=== PATIENT | male | born 2005 | race Caucasian/White ===

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

== ENCOUNTER → 2023-04-19 | Outpatient (CLI) | payer OTHER, SELFPAY ==
--- NOTE | 2023-04-19 | MRI_ITS ---
INDICATION: SYRINX EXAMINATION: MRI - MR Spine Cervical WO/W Contrast TECHNIQUE: Multiplanar and multisequence MR images of the cervical spine were performed before and after IV contrast administration IV Contrast Dosage and Agent: IV CLARISCAN 19 CC COMPARISON: CT Cervical Spine Feb 02 2022, MR BrainMar 2022.CT Cervical Spine Feb 02 2022, MR Brain Aug 16 2022 FINDINGS: VERTEBRAE: Normal vertebral bodies and posterior elements. VERTEBRAL ALIGNMENT: Normal, including the craniocervical junction and cervicothoracic junction. No spondylolisthesis. There is preservation of the normal cervical lordosis. CERVICAL SPINAL CORD: Unremarkable in signal and morphology. C2/C3: Normal disc height and morphology. Normal spinal canal and neuroforamina. C3/C4: Normal disc height and morphology. Normal spinal canal and neuroforamina. C4/C5: Normal disc height and morphology. Normal spinal canal and neuroforamina. C5/C6: Normal disc height and morphology. Normal spinal canal and neuroforamina. C6/C7: Normal disc height and morphology. Normal spinal canal and neuroforamina. C7/T1: Normal disc height and morphology. Normal spinal canal and neuroforamina. NECK SOFT TISSUES: No prevertebral soft tissue swelling. There is no cervical adenopathy. MRI/Spine Cervical W/WO Contrast IMPRESSION: Unremarkable MRI of the cervical spine. Electronically Signed: Da Liao MD at 7:10 [facility] ,
--- NOTE | 2023-04-19 15:55 | MRI_ITS ---
STUDY: MRI THORACIC SPINE WITH AND WITHOUT CONTRAST REASON FOR EXAM: Male, 17 years old. GASTROPARESIS, R/0 SYRINX, IMPINGEMENT TECHNIQUE: T1 and T2-weighted images were performed in various projections through the thoracic spine. IV 19 cc CLARISCAN was administered for the contrast portion of the examination. COMPARISON: None. FINDINGS: Normal kyphosis of the thoracic spine. There is no substantial scoliosis. T1-2, T2-3, T3-4, T4-5, T5-6, T6-7, T10-11, T11-12 : Normal endplates. Normal disc hydration, heights and morphology of the corresponding intervertebral discs. Normal central canal and intervertebral neural foramina at the corresponding levels. T7-8: Disc bulge and spurring. No canal stenosis. Neural foramina are patent, T8-9: Disc bulging and spurring to the left. No canal stenosis. Neural foramina are patent, T9-10: Spurring to the right narrowing the right lateral recess. Neural foramina are patent. Normal visualized thoracic cord. Normal conus medullaris that terminates at the L1 level.. The soft tissue structures are unremarkable. There is no enhancing abnormality. MRI/Spine Thoracic W/WO Contrast IMPRESSION: Scoliosis with degenerative change. No canal stenosis or foraminal narrowing. No syrinx of the thoracic cord. Electronically Signed: Mart Jose MD at 10:00 EST ,
== END | disposition home or self-care (01) ==
PROVIDERS: PCP Family Medicine; Referring Provider Family Medicine; Visit Provider Family Medicine
DX: M54.2 Cervicalgia (principal); G95.0 Syringomyelia and syringobulbia; K31.84 Gastroparesis; R10.9 Unspecified abdominal pain; G89.29 Other chronic pain
CPT/HCPCS: 72156; 72157; A9575

== ENCOUNTER → 2023-04-24 | Outpatient (CLI) | payer OTHER, SELFPAY ==
--- NOTE | 2023-04-24 14:55 | RAD_ITS ---
STUDY: X-RAY - CERVICAL SPINE REASON FOR EXAM: Male, 17 years old. CERVICALGIA TECHNIQUE: 7 view(s) of the cervical spine were obtained. COMPARISON: None FINDINGS: Normal anterior atlantoaxial articulation. Normal odontoid process. Normal cervical lordosis. No subluxation on flexion or extension views. Normal vertebral bodies and endplates. Mild disc space narrowing at C5/C6. Normal visualized intervertebral neuroforamina. The soft tissue structures are unremarkable. RAD/Cerv Spine Obl/Flex/Ext Comp IMPRESSION: Mild focal degenerative disc disease at C5/C6. MRI may be useful. No instability. Electronically Signed: Johny Magallon MD at 22:41 EST ,
== END | disposition home or self-care (01) ==
PROVIDERS: PCP Family Medicine
DX: M54.2 Cervicalgia (principal)
CPT/HCPCS: 72052

== ENCOUNTER 2023-06-28 14:05 | Emergency (ER) | payer OTHER, SELFPAY ==
[2023-06-28 14:06] VITALS: BP 137/68; PULSE 89; RESP 16; TEMP 36.8; O2SAT 98; BMI 30.4
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
--- NOTE | 2023-06-28 14:27 | RAD_ITS ---
STUDY: X-RAY - RIGHT SHOULDER REASON FOR EXAM: Male, 17 years old. Injury/pain. TECHNIQUE: 4 views of the right shoulder. COMPARISON: Right shoulder radiographs dated 04/20/2022. FINDINGS: Intact glenohumeral articulation. There are chronic cystic changes in the glenoid. Normal acromioclavicular joint. Normal acromion. Normal humeral head and visualized proximal humerus. The soft tissue structures are unremarkable. There is no demonstrated fracture. Normal visualized pulmonary apex. RAD/Shoulder min 2 Views IMPRESSION: Unchanged and unremarkable right shoulder. Electronically Signed: Saúl Howell MD at 14:44 EST ,
--- OUTSIDE RECORDS SUMMARY | 2023-06-28 14:59 | XMS RPT_ITS | CCD ---
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 perspective, he relates he had not had recurrent syncope since his initial injection of occipital neuralgia, he did have another injection this year but had not had recurrent syncope. We dicussed the syncope was likely vasovagal associated with the pain from the neuralgia. As he has not had recurrence in the past couple years no additional testing or treatment is indicated. I discussed vasovagal syncope with him and his mom, explained what this means and also we dicussed this reflex would be something he was born with and will have his whole life. We discussed he may never have another episode or could recur even many years from now. I cautioned that triggers can change and even though in the past it was linked with his neck pain he may have an episode from a different trigger and I discussed some examples. Recommendations for Syncope We discussed syncope and the more common potential causes. We discussed workup and management options. -When possible to identify triggers and avoid them, though this is not always possible. -Be self aware , meaning pay attention to the warning signs that you recognize from similar episodes in the past (things like feel lightheaded or dizzy, feeling like you're going to pass out, warm sensation, nausea, sweaty or cold and clammy, ringing in the ears or feeling like your underwater, blurred vision, tunnel vision or a blackening or curtain coming across you vision). -take immediate action, don't try to go somewhere better, warning symptoms may only occur a second or two before. Important to avoid injury. Use postural response (lie down, sit down, lean over a counter or table, hold on to the wall or doorframe anything you can do to lower your risk an limit or avoid a fall) Use physical counter maneuvers (cross your legs or pull your hands apart and squeeze your muscles as we discussed or clench your hands rhythmically and tightly) -Stay well hydrated, if appropriate incorporate a salt rich snack on days your symptomatic (avoid if hypertension or heart failure) -The recovery phase: stay lying down until your recovered, if anyone is with you have them get a glass/bottle of water for you and drink it rapidly. Dont be too quick to stand or resume activities. Go rest for awhile until fully recovered -Never drive, operate machinery or work from heights if symptoms are present. This places you and other at risk for harm or injury. -If you have vasovagal syncope, yoga may be helpful in reducing recurrences but avoid Hot Yoga and may need to avoid certain positions that require abrupt postural change. They had a few questions about seeing a chiropractor, managing neck discomfort with a history of bulging disc, his gastroparesis. I discussed that I am not an expert in these areas and would defer to their other providers, but I did my best to address their questions with my thoughts and understanding in a level consistent with the fundamental medical knowledge of a competent doctor and being very careful to ensure they knew this was not expert opinion or my area of specialty. As he has been stable from a syncope perspective, I will not make a planned follow up but also discussed that if he has recurrent syncope or symptoms of an arrhythmia to not hesitate to message me and I will set up follow up. I personally interviewed, confirmed and edited the above information as obtained by others. CONTACT INFORMATION: Zeny Enriquez DO As a national referral center for Syncope and related conditions, seeing patients from across the country, we cannot provide work, FMLA, disability or other forms, or cardiac clearance. Please contact the patient's primary care physician or clinical electronic page makeup system operator for the documentation requested. We will provide the office notes from the patient's most recent visit if they have not already been received, and other tests or evaluations performed here can be made available upon request. documented in this encounter [facility] 05-09-2023 Miscellaneous Notes Patient asking if he needs to see cardiology that is scheduled on 05/17. Will have xrays sent to our office. Saw eye doctor and nothing was found. States he has not had any more passing out episodes but vomits every day so only eats once a day. Does not take medication and is dealing with pain. Asking advice. Hannah Fu RN, BSN documented in this encounter [facility] 02-13-2023 Miscellaneous Notes Pt's mother to try to schedule opthalmology appointment locally Time Frame: as soon as can be scheduled Orders: consult to ophthalmology (Neuro opthalmology) order is in [facility] Provider: Roberto See Referring: Janet Diagnosis: Arachnoid cyst R/O Papilledema documented in this encounter [facility] 02-07-2023 Miscellaneous Notes Someone on behalf of patient giving update that cartographic technician appointment is not available until next year. Will call locally to try to get patient in sooner. Asked them to sign name on message if not patient so we know who we are messaging. Hannah Fu RN, BSN documented in this encounter [facility] 02-06-2023 Note HNO ID: [id number] Author: Tomasz Hoffmann APRN.WELDING MACHINE OPERATOR HELPER [employer] Service: ? Author Type: Nurse Practitioner Type: Progress Notes Filed: 02/06/2023 4:59 PM Note Text: [facility] Established Patient Virtual Visit Chief Complaint/Issues: Tru Best is a 17 year old handed right-handed male seen via virtual visit for: Follow up Gastroparesis This is a virtual visit using [employer] video visit. It required patient-provider interaction for the medical decision making as documented below. I have communicated my name and active licensure. The patient's identity and physical location were verified at the time of this visit. Either the patient or their legal outside dealer sales representative has been informed of the risks and benefits of -- and alternatives to -- treatment through a remote evaluation and consents to proceed with the evaluation remotely. Brief HPI /Most Recent Department Assessment and Plan Seen 12/18/2022 for initial evaluation: He reports around age 14, he developed issues with bilateral occipital pain. He started having frequent syncopal episodes, estimates about 20 total. Events would often occur without warning, followed by brief LOC lasting only seconds. No seizure signs or post-ictal state. He reports he was eventually diagnosed with occipital neuralgia and received a block, as well as DHE infusions for headaches. After the headaches improved, he no longer had syncopal episodes. He had cardiac monitoring and echo completed and WNL. Events are most likely consistent with vasovagal response 2/2 chronic pain. He is scheduled to see cardiology here at [facility]. After the syncopal episodes he did have an MRI brain showing large L frontal arachnoid cyst, with minor mass effect, for which he follows with [facility] neurology. He had COVID twice in 2021. In July of 2022, he developed new onset GI symptoms (nausea, frequent vomiting, diarrhea). He was unable to keep food down. He developed severe abdominal pain that can radiate to the back. He was eventually diagnosed with gastroparesis and transitioned care to Dr. Wallis. He does have about 20 mmHg decrease in SBP on standaing, which may be secondary to amitriptyline. Will obtain autonomic tilt off medication to evaluate for medication effect. He does not have neuropathy on exam, but given gut dysfunction will obtain QSART. 1) Labs - WNL 2) Send me MRI report and disc 3) QSART - WNL 4) Autonomic reflex with tilt - WNL Today: Accompanied by momAna. We discuss the testing today, during tilt he felt fine the entire time. Mom reports he has been off all of his medications since stopping for the testing. He reports he is actually puking somewhat less and actually has less pain. He is still vomiting daily, especially in the morning. He has not touched base with Dr. Wallis yet. Mom feels concerned about cervical spine impingement. They feel worried about symptoms starting after surgery. Mom reports he sometimes gets neck pain when he extends the neck backwards. PMH PAST MEDICAL HISTORY Diagnosis Date Arachnoid cyst L frontal lobe Gastroparesis Migraines Occipital neuralgia No past surgical history on file. ALLERGIES No Known Allergies Social History Tobacco Use Smoking status: Never Smokeless tobacco: Never Substance Use Topics Alcohol use: Never Drug use: Never No family history on file. Medications Current Outpatient Medications on File Prior to Visit Medication Sig granisetron HCl (KYTRIL) 1 mg tablet Take 1 tablet by mouth every 12 hours as needed. amitriptyline (ELAVIL) 50 mg tablet Take 1 tablet by mouth daily at bedtime. ALPRAZolam (XANAX) 0.25 mg tablet Take by mouth as needed. amitriptyline (ELAVIL) 25 mg tablet metoclopramide HCl (REGLAN) 5 mg tablet ondansetron orally disintegrating (ZOFRAN ODT) [address]ating tablet pantoprazole DR (PROTONIX) 20 mg tablet Take by mouth as directed. oxyCODONE ir (OXYIR) 5 mg capsule Take 5 mg by mouth every 4 hours as needed for pain. traMADol (ULTRAM) 50 mg tablet Take 50 mg by mouth every 6 hours as needed for pain. No current facility-administered medications on file prior to visit. Relevant Current Medications: Granisetron Metoclopramide Zofran PRN Protonix Oxycodone IR PRN Tramadol PRN Amitriptyline 50 mg QHS Alprazolam PRN Medications tried previously (failed): None Relevant Work Up To Date Autonomic Reflex w/ Tilt 01/10/2023 This is a normal cardiovascular autonomic test panel. There is no evidence of a significant cardiovagal or cardiovascular adrenergic abnormality. Specifically, there is no evidence of orthostatic tachycardia or hypotension. QSART 01/10/2023 QSART responses at Left forearm, proximal leg, distal leg, and foot are normal. There is no evidence of a significant postganglionic sympathetic sudomotor abnormality like that seen in autonomic or sm (more content not included)... [facility] 02-06-2023 History of Presen t illness Narrative Images from the original note were not included. [facility] Established Patient Virtual Visit Chief Complaint/Issues: Tru Best is a 17 year old handed right-handed male seen via virtual visit for: Follow up Gastroparesis This is a virtual visit using [employer] video visit. It required patient-provider interaction for the medical decision making as documented below. I have communicated my name and active licensure. The patient's identity and physical location were verified at the time of this visit. Either the patient or their legal outside dealer sales representative has been informed of the risks and benefits of -- and alternatives to -- treatment through a remote evaluation and consents to proceed with the evaluation remotely. Brief HPI /Most Recent Department Assessment and Plan Seen 12/18/2022 for initial evaluation: He reports around age 14, he developed issues with bilateral occipital pain. He started having frequent syncopal episodes, estimates about 20 total. Events would often occur without warning, followed by brief LOC lasting only seconds. No seizure signs or post-ictal state. He reports he was eventually diagnosed with occipital neuralgia and received a block, as well as DHE infusions for headaches. After the headaches improved, he no longer had syncopal episodes. He had cardiac monitoring and echo completed and WNL. Events are most likely consistent with vasovagal response 2/2 chronic pain. He is scheduled to see cardiology here at [facility]. After the syncopal episodes he did have an MRI brain showing large L frontal arachnoid cyst, with minor mass effect, for which he follows with [facility] neurology. He had COVID twice in 2021. In July of 2022, he developed new onset GI symptoms (nausea, frequent vomiting, diarrhea). He was unable to keep food down. He developed severe abdominal pain that can radiate to the back. He was eventually diagnosed with gastroparesis and transitioned care to Dr. Wallis. He does have about 20 mmHg decrease in SBP on standaing, which may be secondary to amitriptyline. Will obtain autonomic tilt off medication to evaluate for medication effect. He does not have neuropathy on exam, but given gut dysfunction will obtain QSART. 1) Labs - WNL 2) Send me MRI report and disc 3) QSART - WNL 4) Autonomic reflex with tilt - WNL Today: Accompanied by mom, Ana. We discuss the testing today, during tilt he felt fine the entire time. Mom reports he has been off all of his medications since stopping for the testing. He reports he is actually puking somewhat less and actually has less pain. He is still vomiting daily, especially in the morning. He has not touched base with Dr. Wallis yet. Mom feels concerned about cervical spine impingement. They feel worried about symptoms starting after surgery. Mom reports he sometimes gets neck pain when he extends the neck backwards. PMH PAST MEDICAL HISTORY Diagnosis Date Arachnoid cyst L frontal lobe Gastroparesis Migraines Occipital neuralgia No past surgical history on file. ALLERGIES No Known Allergies Social History Tobacco Use Smoking status: Never Smokeless tobacco: Never Substance Use Topics Alcohol use: Never Drug use: Never No family history on file. Medications Current Outpatient Medications on File Prior to Visit Medication Sig granisetron HCl (KYTRIL) 1 mg tablet Take 1 tablet by mouth every 12 hours as needed. amitriptyline (ELAVIL) 50 mg tablet Take 1 tablet by mouth daily at bedtime. ALPRAZolam (XANAX) 0.25 mg tablet Take by mouth as needed. amitriptyline (ELAVIL) 25 mg tablet metoclopramide HCl (REGLAN) 5 mg tablet ondansetron orally disintegrating (ZOFRAN ODT) 4 [address] disintegrating tablet pantoprazole DR (PROTONIX) 20 mg tablet Take by mouth as directed. oxyCODONE ir (OXYIR) 5 mg capsule Take 5 mg by mouth every 4 hours as needed for pain. traMADol (ULTRAM) 50 mg tablet Take 50 mg by mouth every 6 hours as needed for pain. No current facility-administered medications on file prior to visit. Relevant Current Medications: Granisetron Metoclopramide Zofran PRN Protonix Oxycodone IR PRN Tramadol PRN Amitriptyline 50 mg QHS Alprazolam PRN Medications tried previously (failed): None Relevant Work Up To Date Autonomic Reflex w/ Tilt 01/10/2023 This is a normal cardiovascular autonomic test panel. There is no evidence of a significant cardiovagal or cardiovascular adrenergic abnormality. Specifically, there is no evidence of orthostatic tachycardia or hypotension. QSART 01/10/2023 QSART responses at Left forearm, proximal leg, distal leg, and foot are normal. There is no evidence of a significant postganglionic sympathetic sudomotor abnormality like that seen in autonomic or small fiber neuropathy [facility] Echo 10/26/2020 SUMMARY: 1. Normal cardiac anatomy, function, and flow. No cardiac defects identified. 2. Normal echocardiogram. Holter 10/31/2018 Normal sinus rhythm Rare PAC No ventricular ectopy Sinus rhythm noted during complaints of dizzy Normal holter study ICD: R55 Syncope and collapse MRI 11/01/2020 FINDINGS: The left frontal arachnoid cyst with minor mass effect on the left frontal lobe and overlying calvarial remodelling is again seen and measures 2.9x 6.5 x 6.1 cm in AP, oblique CC and obl transverse dimensions. It is stable. There is a thin internal septation within the lesion. Limited MRI of the brain did not show additional abnormality. Stable ventricles. Normal appearance of the orbits. Posterior fossa structures are unremarkable. Small left maxillary sinus retention cyst is noted. General Examination: Exam is observational at best. There were no vitals taken for this visit. There were no vitals filed for this visit. Neurologic Examination: Cognition The patient is alert and oriented times four. Lucid and organized in conversation. Able to provide detailed medical hx. Speech Speech is Normal in fluency, volume, and clarity. No dysarthria. Content and syntax are coherent. Comprehension: Able to follow several step commands. Cranial Nerves No gross asymmetry. No ptosis. Assessment & Plan 02/06/2023 - Neuromuscular, Tomasz Hoffmann, PAMELLA.WELDING MACHINE OPERATOR HELPER [employer] ASSESSMENT Tru Best is a 17 year old here today for follow up. Tru Best has a has a past medical history of Arachnoid cyst, Gastroparesis, Migraines, and Occipital neuralgia. He has history of concussion ages 6 and 13. Seen initially for concern for autonomic nervous system dysfunction. He reports around age 14 he had intermittent episodes of TLOC (~20 total) around the time he developed occipital neuralgia. He received DHE infusions which improved his headaches, and he stopped experiencing episodes of TLOC at that time. He was found to have a large L frontal arachnoid cyst with minor mass effect on MRI of the brain around that time, which he has been following with [facility] neurology. Due to the size of the lesion, I urged him to see [facility] brain tumor clinic to determine if this may impact his episodes of loss of consciousness, who were also not concerned. In 07/2022 he developed issues with nausea, vomiting and diarrhea. Eventually diagnosed with gastroparesis, for which he follows with Dr. Wallis. On exam, he did have some orthostatic hypotension. However, he did not have any reported orthostatic symptoms or other autonomic features. QSART and ANS with tilt ordered to evaluate, which were both normal in 01/2023. We discuss his testing today. Given that he does not have autonomic features and testing was WNL, he does not wish to pursue additional work up, which I agree with. His mother does have concern for possible nerve impingement given his neck pain when moving the head. We discuss potentially a significant cervical subluxation could cause vagus nerve impingement, I am happy to check an x-ray to start. PLAN 1) XR cervical spine 4V and flex/extension 2) I will reach out to Dr. Wallis Return We will discuss if follow up is needed based on x-rays. My impression and recommendations were discussed at length with the patient (and family members, if present). The patient and family (if present) voiced understanding to my recommendations. All questions were answered. Medication side effects discussed as applicable. The patient was provided with a detailed after visit summary highlighting my impression and recommendations. I spent a total of 18 minutes on the date of the service which included preparing to see the patient, [id number] patient care, completing clinical documentation, obtaining and/or reviewing separately obtained history, counseling and educating the patient/family/caregiver, and ordering medications, tests, or procedures. Tomasz Hoffmann APRN.[facility] General Neurology [address] [place]. [address] Appointment: [phone] During our virtual clinical encounter we discussed my concerns neurologically in terms of diagnosis, impact on health and activities of living, and addressed questions. I tried to reassure the patient and also address questions. I explained to the patient to call if any questions, to review results, and I want to see them return for neurological follow up as mychart as next steps of communication is agreed upon Patient verbalizes understanding and I have addressed concerns and questions at this visit Patient has my contacts, educational material provided, and my chart sign up. After visit summary discussed. 1. This office note has been dictated and may contain minor typographic errors that escaped review. 2. The nursing staff and medical assistants are a major part of YOUR TREATMENT TEAM and will be handling your phone calls and inquiries, if any. Unless explicitly told otherwise at the time of your office visit, your study results and ensuing treatment plans will be discussed during your follow-up appointment. If you do not have a follow-up appointment and wish to discuss any issues directly with me, please feel free to obtain one. 3. It is my practice to not fill disability or any other insurance-related forms/documention. All of the office notes, study results, and other pertinent documentation generated as part of your evaluation will be available to you and to your Primary Care Physician (PCP). Use of this material to complete such forms will be at the discretion of your PCP/referring physician documented in this encounter [facility] 01-21-2023 Note HNO ID: [id number] Author: Gilberto Vee MD Service: ? Author Type: Physician Type: Progress Notes Filed: 01/21/2023 11:26 AM Note Text: [facility] Virtual New Patient Consultation Referred by Tomasz Hoffmann I will convey my opinions and recommendations to her through our common electronic medical record. [address] [place] [address] We had a virtual visit conducted via Zoom I received consent from the patient to perform the visit using this platform. I have communicated my name and active licensure. The patient's identity and physical location were verified at the time of this visit. Either the patient or their legal outside dealer sales representative has been informed of the risks and benefits of -- and alternatives to -- treatment through a remote evaluation and consents to proceed with the evaluation remotely. Diagnosis: arachnoid cyst. Subjective History of Present Illness: He had episodes of fainting when he was 14. Mom estimates about 20 episodes of fainting. He denies trigger. He only had events while standing. He would lose consciousness without warning sign. Typical LOC lasting only seconds. No incontinence, no mouth maceration. Denies any confusion after episodes. He was having spinning dizziness and headaches at the time, had an occipital nerve block which alleviated the symptoms. He denies any syncopal episodes after that time. He reports he had DHE for the headaches after the blocks. He had normal cardiac monitoring and echo at that time. He reports he has not struggled consistently with headaches since that time. By July 2022, he had persistent issues with GI symptoms. He has chronic nausea with vomiting, and diarrhea. Consult placed by GI, Dr. Wallis, with who she follows for gastroparesis and abdominal pain. He reports having gastric emptying study which diagnosed the gastroparesis. He was hospitaliized in August due to the severity of the pain. Had an EEG which was overall WNL. He has constant abdominal pain that can radiate to the back. He had a block done at T9-10 which did help with the nausea for some time. He also had a celiac plexus block without relief. 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 He has had 2 concussions in his life, though he has never been knocked unconscious. He estimates age 6 and [age]. He has a stable arachnoid cyst, sees [facility] who does yearly imaging. She shows me briefly the image, it is L frontal, encapsulated. They saw a local neurologist, who told them they need a cyst removed. He denies any weakness in the hands or arms, no decreased coordination. Last Chemo: N/A Current Steroids dose: N/A Current AED Dose: N/A Therapy Status Data Form Past Medical History: PAST MEDICAL HISTORY Diagnosis Date Arachnoid cyst L frontal lobe Gastroparesis Migraines Occipital neuralgia Past Surgical History: No past surgical history on file. Family History: No family history on file. Social History Tobacco Use Smoking status: Never Smokeless tobacco: Never Substance Use Topics Alcohol use: Never Drug use: Never Allergies: Patient has no known allergies. Current Outpatient Medications Medication Sig granisetron HCl (KYTRIL) 1 mg tablet Take 1 tablet by mouth every 12 hours as needed. amitriptyline (ELAVIL) 50 mg tablet Take 1 tablet by mouth daily at bedtime. ALPRAZolam (XANAX) 0.25 mg tablet Take by mouth as needed. amitriptyline (ELAVIL) 25 mg tablet metoclopramide HCl (REGLAN) 5 mg tablet ondansetron orally disintegrating (ZOFRAN ODT) 4 mg disintegrating tablet pantoprazole DR (PROTONIX) 20 mg tablet Take by mouth as directed. oxyCODONE ir (OXYIR) 5 mg capsule Take 5 mg by mouth every 4 hours as needed for pain. traMADol (ULTRAM) 50 mg tablet Take 50 mg by mouth every 6 hours as needed for pain. No current facility-administered medications for this visit. Review of systems: Constitutional: No recent fever or weight loss. Eyes: No history of glaucoma or cataracts. ENMT: No recent ear infection, nasal congestion, mouth sores or sore throat. CV: No history of chest pain, palpitations or leg swelling. Respiratory: No history of SOB, asthma or recent cough. Gastrointestinal: No history of nausea, vomiting, dysphagia or abdominal pain. Genitourinary: No history of hematuria or dysuria. Musculoskeletal: No complaint of arthritis, unstable gait or arm/leg weakness. Psychiatric: No history of hallucinations or depression or anxiety. ROS Neurological: No complaint of headache. No complaint of tinnitus. No complaint of decreased hearing. No complaint of diplopia. No complaints of decreased visual acuity. No complaint of arm/leg numbness. No problem with limb coordination. No complaint of syncope, seizures or disorientation. Objective Physical Exam: There w (more content not included)... [facility] 01-21-2023 Instructions Gilberto Vee MD - 01/21/2023 11:21 AM EDT Personal review of image, tracing or specimen: I reviewed his brain MRIs and CTs from November 2022 back to February 2018. The size and appearance of the left frontal convexity arachnoid cyst is unchanged. The basal cisterns are wide open and there is no midline shift at the level of the pineal glans. Multifocal: No Subependymal spread: No Assessment & Plan Diagnosis: Arachnoid Cyst Treatment Options and Risks: I have discussed the management options and their respective risks and benefits with the patient. We reviewed the radiographic findings outlined above. I believe that it is highly unlikely that this cyst has anything to do with his gastrointestinal complaints. I will obtain a neuro-ophthalmology consultation for funduscopic exam to look for papilledema. If negative, then no relationship to his symptoms. Recommendations: As above Medicines: No Change Instructions: Continue present activity documented in this encounter [facility] 01-21-2023 History of Presen t illness Narrative Images from the original note were not included. [facility] Virtual New Patient Consultation Referred by Tomasz Hoffmann I will convey my opinions and recommendations to her through our common electronic medical record. [address] [place] [address] We had a virtual visit conducted via [employer] I received consent from the patient to perform the visit using this platform. I have communicated my name and active licensure. The patient's identity and physical location were verified at the time of this visit. Either the patient or their legal outside dealer sales representative has been informed of the risks and benefits of -- and alternatives to -- treatment through a remote evaluation and consents to proceed with the evaluation remotely. Diagnosis: arachnoid cyst. Subjective History of Present Illness: He had episodes of fainting when he was 14. Mom estimates about 20 episodes of fainting. He denies trigger. He only had events while standing. He would lose consciousness without warning sign. Typical LOC lasting only seconds. No incontinence, no mouth maceration. Denies any confusion after episodes. He was having spinning dizziness and headaches at the time, had an occipital nerve block which alleviated the symptoms. He denies any syncopal episodes after that time. He reports he had DHE for the headaches after the blocks. He had normal cardiac monitoring and echo at that time. He reports he has not struggled consistently with headaches since that time. By July 2022, he had persistent issues with GI symptoms. He has chronic nausea with vomiting, and diarrhea. Consult placed by GI, Dr. Wallis, with who she follows for gastroparesis and abdominal pain. He reports having gastric emptying study which diagnosed the gastroparesis. He was hospitaliized in August due to the severity of the pain. Had an EEG which was overall WNL. He has constant abdominal pain that can radiate to the back. He had a block done at T9-10 which did help with the nausea for some time. He also had a celiac plexus block without relief. 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 He has had 2 concussions in his life, though he has never been knocked unconscious. He estimates age 6 and 14-15. He has a stable arachnoid cyst, sees [facility] who does yearly imaging. She shows me briefly the image, it is L frontal, encapsulated. They saw a local neurologist, who told them they need a cyst removed. He denies any weakness in the hands or arms, no decreased coordination. Last Chemo: N/A Current Steroids dose: N/A Current AED Dose: N/A Therapy Status Data Form Past Medical History: PAST MEDICAL HISTORY Diagnosis Date Arachnoid cyst L frontal lobe Gastroparesis Migraines Occipital neuralgia Past Surgical History: No past surgical history on file. Family History: No family history on file. Social History Tobacco Use Smoking status: Never Smokeless tobacco: Never Substance Use Topics Alcohol use: Never Drug use: Never Allergies: Patient has no known allergies. Current Outpatient Medications Medication Sig granisetron HCl (KYTRIL) 1 mg tablet Take 1 tablet by mouth every 12 hours as needed. amitriptyline (ELAVIL) 50 mg tablet Take 1 tablet by mouth daily at bedtime. ALPRAZolam (XANAX) 0.25 mg tablet Take by mouth as needed. amitriptyline (ELAVIL) 25 mg tablet metoclopramide HCl (REGLAN) 5 mg tablet ondansetron orally disintegrating (ZOFRAN ODT) 4 mg disintegrating tablet pantoprazole DR (PROTONIX) 20 mg tablet Take by mouth as directed. oxyCODONE ir (OXYIR) 5 mg capsule Take 5 mg by mouth every 4 hours as needed for pain. traMADol (ULTRAM) 50 mg tablet Take 50 mg by mouth every 6 hours as needed for pain. No current facility-administered medications for this visit. Review of systems: Constitutional: No recent fever or weight loss. Eyes: No history of glaucoma or cataracts. ENMT: No recent ear infection, nasal congestion, mouth sores or sore throat. CV: No history of chest pain, palpitations or leg swelling. Respiratory: No history of SOB, asthma or recent cough. Gastrointestinal: No history of nausea, vomiting, dysphagia or abdominal pain. Genitourinary: No history of hematuria or dysuria. Musculoskeletal: No complaint of arthritis, unstable gait or arm/leg weakness. Psychiatric: No history of hallucinations or depression or anxiety. ROS Neurological: No complaint of headache. No complaint of tinnitus. No complaint of decreased hearing. No complaint of diplopia. No complaints of decreased visual acuity. No complaint of arm/leg numbness. No problem with limb coordination. No complaint of syncope, seizures or disorientation. Objective Physical Exam: There were no vitals taken for this visit. General Exam Neurological Exam Reflexes Deep tendon reflexes graded by [facility] Karnofsky performance status: 100 - Normal, no complaints, no evidence of disease. PHQ 2 and 9 Total Scores 12/17/2022 PHQ-2 Score 4 PHQ-9 Score 13 Labs: No flowsheet data found. No flowsheet data found. Final Pathology: N/A Imaging: Images were obtained outside of [facility] Data Review: Eric Suh MD 11:01 AM 01/21/2023 [facility] Personal review of medical records: I reviewed the [facility] chart. Personal review of image, tracing or specimen: I reviewed his brain MRIs and CTs from November 2022 back to February 2018. The size and appearance of the left frontal convexity arachnoid cyst is unchanged. The basal cisterns are wide open and there is no midline shift at the level of the pineal glans. Multifocal: No Subependymal spread: No Assessment & Plan Diagnosis: Arachnoid Cyst Treatment Options and Risks: I have discussed the management options and their respective risks and benefits with the patient. We reviewed the radiographic findings outlined above. I believe that it is highly unlikely that this cyst has anything to do with his gastrointestinal complaints. I will obtain a neuro-ophthalmology consultation for funduscopic exam to look for papilledema. If negative, then no relationship to his symptoms. Recommendations: As above Medicines: No Change Instructions: Continue present activity Physician [id number] time was 9 minutes with > 50% devoted to counseling or co-ordination of care. Approximately 20 minutes were spent reviewing medical records. No resident was available to participate in this visit. I saw and evaluated the patient. I reviewed the fellow's note and agree with findings and plan as written. documented in this encounter [facility] 01-11-2023 Miscellaneous Notes Patient's family giving update that he will see Dr Vee on 01/21/23. Asking if all MRI's are visible. States tests he had done yesterday were normal. Wondering if could be impingement of nerves in neck or shoulders. Asking if MRI of neck and cervical spine should be done. Hannah Fu RN, BSN documented in this encounter [facility] 01-10-2023 Note HNO ID: [id number] Author: Laura Moseley Service: ? Author Type: ? Type: Progress Notes Filed: 01/10/2023 12:33 PM Note Text: UNIVERSAL PROTOCOL / SAFETY CHECKLIST Procedure to be Performed: QSART AND ANS W/TILT Sign In: A Moment of CARE was completed. Personnel directly involved with the procedure wore the appropriate PPE (Personal Protective Equipment). Patient/Surrogate Stated/Verified: PATIENT VERIFIED(optional for EMERGENT procedures): Patient name, Date of , Relevant allergies, and The intended procedure Time Out Communication: Intended patient and procedure match the source documents. Correct side/site marked and visible. Medications required for procedure verified. Sign Out: SIGN OUT (optional for EMERGENT procedures): Post-procedure follow-up management communicated and Plan of Care Visit completed when applicable. Laura Moseley [facility] 01-10-2023 History of Presen t illness Narrative UNIVERSAL PROTOCOL / SAFETY CHECKLIST Procedure to be Performed: QSART & ANS W/TILT Sign In: A Moment of CARE was completed. Personnel directly involved with the procedure wore the appropriate PPE (Personal Protective Equipment). Patient/Surrogate Stated/Verified: PATIENT VERIFIED(optional for EMERGENT procedures): Patient name, Date of , Relevant allergies, and The intended procedure Time Out Communication: Intended patient and procedure match the source documents. Correct side/site marked and visible. Medications required for procedure verified. Sign Out: SIGN OUT (optional for EMERGENT procedures): Post-procedure follow-up management communicated and Plan of Care Visit completed when applicable. Laura Moseley documented in this encounter [facility] 12-26-2022 Miscellaneous Notes Time Frame: Next available, can offer virtual visit Provider: Intra-axial neurosurgeon Referring: Tomasz Hoffmann APRN.CNP Dx: Arachnoid cyst 12/26/2022 7:54 AM Neur Neuromusc Main Tomasz Hoffmann Order Providers Authorizing Provider Encounter Provider Tomasz Hoffmann APRN.CNP Silberman, Emily P, APRN.CNP Future Order Information Expires 12/26/23 Associated Diagnoses Arachnoid cyst [G93.0] Syncope and collapse [R55] Autonomic dysfunction [G90.9] Comments Reviewed with Dr. Joseph Aburto, would like opinion on if large cyst can contribute to syncope / autonomic dysfunction Reason for Exam Priority: Routine Dx: Arachnoid cyst [G93.0 (ICD-10-CM)]; Syncope and collapse [R55 (ICD-10-CM)]; Autonomic dysfunction [G90.9 (ICD-10-CM)] Comments: Reviewed with Dr. Joseph Aburto, would like opinion on if large cyst can contribute to syncope / autonomic dysfunction Order Questions Question Answer [facility] Epic access? Yes [facility] documented in this encounter [facility] 12-19-2022 Miscellaneous Notes Received imaging reports from [facility]. In scanned documents for review. Imaging uploaded for review. documented in this encounter [facility] 12-18-2022 Note HNO ID: [id number] Author: Tomasz Hoffmann APRN.CNP Service: ? Author Type: Nurse Practitioner Type: Progress Notes Filed: 12/18/2022 4:34 PM Note Text: [facility] New Patient Evaluation Chief Complaint/Issues: Tru Best is a 17 year old right-handed male seen in the [facility] for: New patient Gastroparesis HPI: Accompanied by mother Ana. He had episodes of fainting when he was 14. Mom estimates about 20 episodes of fainting. He denies trigger. He only had events while standing. He would lose consciousness without warning sign. Typical LOC lasting only seconds. No incontinence, no mouth maceration. Denies any confusion after episodes. He was having spinning dizziness and headaches at the time, had an occipital nerve block which alleviated the symptoms. He denies any syncopal episodes after that time. He reports he had DHE for the headaches after the blocks. He had normal cardiac monitoring and echo at that time. He reports he has not struggled consistently with headaches since that time. He will get a rare headache when feeling dehydrated. He had a labrum repair in August 2021. In 2022 he had a revision in June. By July 2022, he had persistent issues with GI symptoms. He has chronic nausea with vomiting, and diarrhea. Consult placed by GI, Dr. Wallis, with who she follows for gastroparesis and abdominal pain. He reports having gastric emptying study which diagnosed the gastroparesis. He was hospitaliized in August due to the severity of the pain. Had an EEG which was overall WNL. He has constant abdominal pain that can radiate to the back. He had a block done at T9-10 which did help with the nausea for some time. He also had a celiac plexus block without relief. 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 He has had 2 concussions in his life, though he has never been knocked unconscious. He estimates age 6 and [age]. He has a stable arachnoid cyst, sees [facility] who does yearly imaging. She shows me briefly the image, it is L frontal, encapsulated. They saw a local neurologist, who told them they need a cyst removed. He denies any weakness in the hands or arms, no decreased coordination. PMH PAST MEDICAL HISTORY Diagnosis Date Arachnoid cyst L frontal lobe Gastroparesis Migraines Occipital neuralgia History reviewed. No pertinent surgical history. ALLERGIES No Known Allergies Social History Tobacco Use Smoking status: Never Smokeless tobacco: Never Substance Use Topics Alcohol use: Never Drug use: Never History reviewed. No pertinent family history. ROS Review of Systems See below Autonomic Screening Do you become dizzy or lightheaded with standing? no Do you notice your heart racing (tachycardia) with postural change? no Do you have syncope? None since age 14 In the past month, did you have any falls? no How long can you stand (in minutes) before becoming symptomatic? no Are symptoms worse after consuming a meal? no Are symptoms alleviated by sitting/laying down? no Autonomic check list: YES (Y) or NO (N) Dry mouth: no Dry eyes: no Change in sweat: no Constipation: no Abdominal Bloating with shortly after eating: yes Fluctuation of diarrhea and constipation: yes Urination: no Change in taste: no Challenge swallowing foods: no Skin changes of blue or redness to distal limbs: no Fainting /near syncope/syncope: yes Dizziness: no Light headiness: no Chest pain: no Challenge in breathing: no Tachycardia: no Temperature Regulation: no Bright lights: no Numbness / tingling: no Hx of head/neck trauma? Concussion age 6, 13 Hx of severe viral illness? COVID x2 in 2021 Hx of autoimmune disease? No Current management of orthostatic condition Diet: Standard Exercise: Working an active job Water: gallon Salt: Gatorade Stockings: None Elevated HOB: Flat Medications Current Outpatient Medications on File Prior to Visit Medication Sig granisetron HCl (KYTRIL) 1 mg tablet Take 1 tablet by mouth every 12 hours as needed. amitriptyline (ELAVIL) 50 mg tablet Take 1 tablet by mouth daily at bedtime. ALPRAZolam (XANAX) 0.25 mg tablet Take by mouth as needed. amitriptyline (ELAVIL) 25 mg tablet (Patient not taking: Reported on 11/28/2022) metoclopramide HCl (REGLAN) 5 mg tablet ondansetron orally disintegrating (ZOFRAN ODT) 4 mg disintegrating tablet pantoprazole DR (PROTONIX) 20 mg tablet Take by mouth as directed. oxyCODONE ir (OXYIR) 5 mg capsule Take 5 mg by mouth every 4 hours as needed for pain. traMADol (ULTRAM) 50 mg tablet Take 50 mg by mouth every 6 hours as needed for pain. No current facility-administered medications on file prior to visit. Relevant Current Medications: Amitryptiline 50 mg QHS Alprazolam PRN Reglan Zogran (more content not included)... [facility] 12-03-2022 Miscellaneous Notes TC to pts mother regarding appointment. Per Dr. Qureshi pt is not appropriate to be seen by him since he already has seen other neurologists and the symptoms the pt is having Dr. Qureshi does not see. Explained to the mother she can ask Dr. Reardon for a referral to neuromuscular. Mother is upset appointment was cancelled and was cursing at this staff and yelling on the phone. This staff apologized for the confusion and the cancelling of the appointment. States pt has been in pain and the issues are not the cyst in his [place] that the size has not changed. Mother stated she is done with as he has dismissed sons concerns. Advised her to ask for the referrals from him. Mother declined and will ask Dr. Wallis from gastroenterology for referrals. Cancelled appointment with Dr. Qureshi for December 14. Lesley Price LPN documented in this encounter [facility] 11-29-2022 Note HNO ID: [id number] Author: America Wallis, DO Service: ? Author Type: Physician Type: Progress Notes Filed: 11/29/2022 7:21 AM Note Text: FOLLOW UP VIRTUAL VISIT I have communicated my name and active licensure. The patient's identity and physical location were verified at the time of this visit. Either the patient or their legal outside dealer sales representative has been informed of the risks and benefits of -- and alternatives to -- treatment through a remote evaluation and consents to proceed with the evaluation remotely. This visit was conducted as a virtual visit. CHIEF COMPLAINT Patient presents with: Gastroparesis Abdominal Pain Mr. Best is here today for follow-up of: Gastroparesis abdominal pain. HPI I saw this patient in follow up for the gi issues by virtual visit. He was last seen 09/27/2022 as a new consult. He has had ongoing issues with pain. The symptoms seem to be worsening. The Vomiting is more frequent. Pain management did a T9-10 block about a month ago which helped temporarily. He is voluntarily stopping meds off and on. Current Outpatient Medications Medication Sig Dispense Refill amitriptyline (ELAVIL) 50 mg tablet Take 1 tablet by mouth daily at bedtime. 30 tablet 5 ALPRAZolam (XANAX) 0.25 mg tablet Take by mouth as needed. metoclopramide HCl (REGLAN) 5 mg tablet ondansetron orally disintegrating (ZOFRAN ODT) 4 mg disintegrating tablet pantoprazole DR (PROTONIX) 20 mg tablet Take by mouth as directed. oxyCODONE ir (OXYIR) 5 mg capsule Take 5 mg by mouth every 4 hours as needed for pain. traMADol (ULTRAM) 50 mg tablet Take 50 mg by mouth every 6 hours as needed for pain. amitriptyline (ELAVIL) 25 mg tablet (Patient not taking: Reported on 11/28/2022) No current facility-administered medications for this visit. ALLERGIES No Known Allergies Medical History: No changes since last visit. REVIEW OF SYSTEMS: GENERAL: weight stable, no fevers. CARDIOVASCULAR: No chest pain, no edema RESPIRATORY: No dyspnea : neg BLOCK MECHANIC: na The remainder of the review of systems are negative. Reviewed with patient during visit today. PHYSICAL EXAMINATION: There were no vitals taken for this visit. Estimated weight: GENERAL APPEARANCE: Well developed and well nourished. SKIN: Skin color, texture, turgor normal. No rashes or lesions. EYES: Conjunctiva normal without icterus. OROPHARYNX: lips, mucosa, and tongue normal, teeth and gums normal NECK: no JVD LUNGS: Normal respirations on RA HEART:pt describes normal heart rythm NEURO: Alert and oriented in no acute distress. ABDOMEN: nondistended EXTREMITIES:Extremities normal, No deformities, No skin discoloration, No edema . Assessment Encounter Diagnosis ICD-10-CM 1. Nausea and vomiting, unspecified vomiting type R11.2 granisetron HCl (KYTRIL) 1 mg tablet 2. Chronic abdominal pain R10.9 G89.29 3. Gastroparesis K31.84 America Wallis DO 11/29/2022 [facility] 11-29-2022 History of Presen t illness Narrative FOLLOW UP VIRTUAL VISIT I have communicated my name and active licensure. The patient's identity and physical location were verified at the time of this visit. Either the patient or their legal outside dealer sales representative has been informed of the risks and benefits of -- and alternatives to -- treatment through a remote evaluation and consents to proceed with the evaluation remotely. This visit was conducted as a virtual visit. CHIEF COMPLAINT Patient presents with: Gastroparesis Abdominal Pain Mr. Best is here today for follow-up of: Gastroparesis abdominal pain. HPI I saw this patient in follow up for the gi issues by virtual visit. He was last seen 09/27/2022 as a new consult. He has had ongoing issues with pain. The symptoms seem to be worsening. The Vomiting is more frequent. Pain management did a T9-10 block about a month ago which helped temporarily. He is voluntarily stopping meds off and on. Current Outpatient Medications Medication Sig Dispense Refill amitriptyline (ELAVIL) 50 mg tablet Take 1 tablet by mouth daily at bedtime. 30 tablet 5 ALPRAZolam (XANAX) 0.25 mg tablet Take by mouth as needed. metoclopramide HCl (REGLAN) 5 mg tablet ondansetron orally disintegrating (ZOFRAN ODT) 4 mg disintegrating tablet pantoprazole DR (PROTONIX) 20 mg tablet Take by mouth as directed. oxyCODONE ir (OXYIR) 5 mg capsule Take 5 mg by mouth every 4 hours as needed for pain. traMADol (ULTRAM) 50 mg tablet Take 50 mg by mouth every 6 hours as needed for pain. amitriptyline (ELAVIL) 25 mg tablet (Patient not taking: Reported on 11/28/2022) No current facility-administered medications for this visit. ALLERGIES No Known Allergies Medical History: No changes since last visit. REVIEW OF SYSTEMS: GENERAL: weight stable, no fevers. CARDIOVASCULAR: No chest pain, no edema RESPIRATORY: No dyspnea : neg BLOCK MECHANIC: na The remainder of the review of systems are negative. Reviewed with patient during visit today. PHYSICAL EXAMINATION: There were no vitals taken for this visit. Estimated weight: GENERAL APPEARANCE: Well developed and well nourished. SKIN: Skin color, texture, turgor normal. No rashes or lesions. EYES: Conjunctiva normal without icterus. OROPHARYNX: lips, mucosa, and tongue normal, teeth and gums normal NECK: no JVD LUNGS: Normal respirations on RA HEART:pt describes normal heart rythm NEURO: Alert and oriented in no acute distress. ABDOMEN: nondistended EXTREMITIES:Extremities normal, No deformities, No skin discoloration, No edema . Assessment Encounter Diagnosis ICD-10-CM 1. Nausea and vomiting, unspecified vomiting type R11.2 granisetron HCl (KYTRIL) 1 mg tablet 2. Chronic abdominal pain R10.9 G89.29 3. Gastroparesis K31.84 America Wallis DO 11/29/2022 documented in this encounter [facility] 11-12-2022 History of Presen t illness Narrative Images from the original note were not included. [facility] [address] [place] [address] [facility] [id number] Dept: [phone] Dept Loc: [phone] Yahaira Reardon MD Thank you for your kind request for a neurological consultation on this patient. CHIEF COMPLAINT: Chief Complaint Patient presents with New Patient nausea and vomiting HISTORY OF PRESENT ILLNESS: The patient is a 16 y.o. person who presents with gastroparesis. He denies numbness and tingling in the hands or feet. He denies neck pain. He reports that he did have to see a neurologist for headaches in the past but these were resolved with occipital nerve blocks. He reports that he was put on amitriptyline by another neurologist for gastroparesis. I reviewed the notes from the prior neurologist and it shows that he was on amitriptyline for migraine headache prevention and that at a later date he had episodes of nausea and vomiting such that the neurologist continued the medication. The patient reports that he is having episodes of nausea and vomiting. He reports that he started having episodes of nausea and vomiting for more than a month every day. He denies dizziness or headaches with the nausea/vomiting. At the end of the visit, he reports that he was passing out when walking. He would go out for 30 s - 1 min. Usually was immediately aware after wards. He reports that he had a normal Past Medical History: has a past medical history of Arachnoid cyst, Gastroparesis, Migraine, and Syncope and collapse. Past Surgical History: has no past surgical history on file. Medications: Current Outpatient Medications: ALPRAZolam (Xanax) 0.25 MG tablet, Take by mouth., Disp: , Rfl: amitriptyline (Elavil) 50 MG tablet, , Disp: , Rfl: ondansetron ODT (Zofran-ODT) 4 MG disintegrating tablet, , Disp: , Rfl: pantoprazole (ProtoNix) 20 MG EC tablet, Take by mouth., Disp: , Rfl: traMADol (Ultram) 50 MG tablet, Take 50 mg by mouth every 6 hours as needed., Disp: , Rfl: Allergies: Patient has no known allergies. Social History: Social History Socioeconomic History Marital status: Single Spouse name: Not on file Number of children: Not on file Years of education: Not on file Highest education level: Not on file Occupational History Not on file Tobacco Use Smoking status: Never Smokeless tobacco: Never Substance and Sexual Activity Alcohol use: Never Drug use: Never Sexual activity: Not on file Other Topics Concern Not on file Social History Narrative Not on file Social Determinants of Health Financial Resource Strain: Not on file Food Insecurity: Not on file Transportation Needs: Not on file Physical Activity: Not on file Stress: Not on file Social Connections: Not on file Intimate Partner Violence: Not on file Housing Stability: Not on file Family History: Family History Problem Relation Name Age of Onset Stroke Mother Diabetes Father Hypertension Father Heart disease Maternal Grandmother Heart attack Maternal Grandfather Diabetes Paternal Grandmother Diabetes Paternal Grandfather REVIEW OF SYSTEMS: Review of Systems Constitutional: Negative for appetite change, chills, diaphoresis, fever and unexpected weight change. HENT: Negative for dental problem and mouth sores. Eyes: Negative for discharge and itching. Respiratory: Negative for chest tightness. Cardiovascular: Negative for chest pain and leg swelling. Gastrointestinal: Negative for rectal pain and vomiting. Endocrine: Negative for polydipsia, polyphagia and polyuria. Genitourinary: Negative for decreased urine volume, flank pain and genital sores. Musculoskeletal: Negative for arthralgias. Skin: Negative for color change. Allergic/Immunologic: Negative for food allergies and immunocompromised state. Neurological: Negative for dizziness. Nausea and vomiting Hematological: Negative for adenopathy. Does not bruise/bleed easily. Psychiatric/Behavioral: Negative for agitation, behavioral problems, decreased concentration, sleep disturbance and suicidal ideas. PHYSICAL EXAM: Vitals: BP 127/76 (BP Location: Right arm, Patient Position: Sitting, BP Cuff Size: Adult) Pulse 86 Ht 5' 11 (1.803 m) Wt 203 lb 3.2 oz (92.2 kg) BMI 28.34 kg/m General Appearance: Patient is in no apparent distress. Head is normocephalic, atraumatic Cardiovascular: Regular rate and rhythm. No heart murmurs. No carotid bruit Neurologic: Mentation: Alert and oriented x 3 to person, place and time. Speech and Language: Speech and language normal Concentration and Attention: Concentration normal Memory: Memory normal Fund of Knowledge: Fund of knowledge normal Cranial Nerves: II, III, IV, V, , VII, VIII, IX, X, XI, XII tested and were intact including fundoscopic exam (optic discs) and visual field to confrontation. Motor: Strength:Strength 5 out of 5 with normal tone Alternating Movements: Normal Cogwheel Rigidity: None Tone: Tone is normal Tremor / Involuntary Movements: None Deep Tendon Reflexes: 1 out of 4 symmetrical in all four limbs. Sensory: Normal sensation upper and lower extremities Coordination: Normal coordination upper and lower extremities Gait and Station: Station is normal. Gait is normal DATA CBC: No results found for: WBC, RBC, HGB, HCT, MCV, MCH, MCHC, RDW, PLT, MPV CMP: No results found for: NA, K, CL, CO2, BUN, CREATININE, AGRATIO, LABGLOM, GLUCOSE, GLU, PROT, CALCIUM, BILITOT, ALKPHOS, AST, ALT BMP: No results found for: NA, K, CL, CO2, BUN, CREATININE, CALCIUM, LABGLOM, GLUCOSE, GLU PT/INR: No results found for: PROTIME, INR PTT: No results found for: APTT, PTT[APTT} FLP: No results found for: CHLPL, TRIG, HDL, LDLCALC, LDLDIRECT TSH: No results found for: TSH VITAMIN B12: No results found for: [id number] FERRITIN: No results found for: FERRITIN ---- No results found for: PHENYTOIN, PHENOBARB, VALPROATE, CBMZ No components found for: TOPIRANo results found for: OXCARBAZE, OXCARB @LASTAPPOINTMENTTHISPROV@ No image results found. @RESULTINGLABINFO@ No results found for: LEVETIRACETA, FERRITIN, CRP, GERARDO, ANCA No results found for: TITI, IMMUNOGLOBUL, OLIGOBANDS No results found for: HIU39EP, HEPCAB No results found for: CRP, ANATITER, ANCA, ANCA Mayi Reyes MD - 10/31/2020 CLINICAL HISTORY: arachnoid cyst, headache, dizziness, syncope, blurry vision, evaluate for change. TECHNIQUE: MRI of the brain was performed at 3 Noa without intravenous contrast. COMPARISON: MRI brain . FINDINGS: The left frontal arachnoid cyst with minor mass effect on the left frontal lobe and overlying calvarial remodelling is again seen and measures 2.9x 6.5 x 6.1 cm in AP, oblique CC and obl transverse dimensions. It is stable. There is a thin internal septation within the lesion. Limited MRI of the brain did not show additional abnormality. Stable ventricles. Normal appearance of the orbits. Posterior fossa structures are unremarkable. Small left maxillary sinus retention cyst is noted. IMPRESSION: Left frontal arachnoid cyst stable since recent prior OSH MRI. This report has been created using voice recognition software Exam End: 10/31/20 14:45 ASSESSMENT AND PLAN: Diagnosis Plan 1. Intractable nausea and vomiting MR brain w and wo contrast 2. Arachnoid cyst MR brain w and wo contrast 3. Syncope and collapse MR brain w and wo contrast External referral to Cardiology It is medically necessary to get an MRI brain w and wo to determine if the patient has a lesion or tumor affecting the medulla causing this intractable nausea and vomiting. Will give him Nurtec samples to try prn to see if these help. If they help then this is a new form of his migraines and we will try to prevent the migraines causing nausea/vomiting. T His prior CT reported cyst with mass effect on the left frontal lobe. MRI brain to re-evaluate this. The events sound like vasovagal syncope. Referral to Dr. Enriquez at [facility] for further evaluation and treatment. He has no signs or symptoms of neuropathy on today's visit, so I cannot justify an EMG/NCS for neuropathy if that was the intention of the gastroenterology team. I spent 45 minutes caring for this patient today, reviewing labs and records, seeing the patient, documenting in the record and arranging for studies. documented in this encounter [facility] 11-08-2022 Miscellaneous Notes TC to patient to clarify appointment with Dr. Qureshi scheduled 12/14/22 -whether he would like establish d/t already seeing a neuro at [facility] & to clarify multiple symptoms. Patient states original neurologist is transferring to [place] & can not be seen until the end of December. States mother wants patient to be seen in the interim d/t gastroparesis dx. Advised Dr. Qureshi is a general neurologist, same as provider he's already established with. Also advised patient, Dr. Qureshi does not administer nerve blocks like current neurologist does for [place] but that Dr. Qureshi can refer to the appropriate provider for that if he would like to establish with Dr. Qureshi for general neuro care. Patient states he's currently driving and will call back to update. If no contact please attempt to reach out to patient prior to scheduled appointment. Khadijah Vail MA documented in this encounter [facility] 11-08-2022 Note We still have not re ceived the referral. I called [facility] Gastroenterology and spoke with Teresa. Teresa stated per Dr. America Cardona notes a referral is to be placed but she did not see the referral in the pt chart. She stated that a message would be sent to the provider. Per your schedule your next available appt is not until January. [facility] 11-08-2022 Miscellaneous Notes Faxed referral to Dr Reardon to [phone] with confirmation. Pattie Meza LPN Dr. Yahaira Reardon' Office - Neurologist - is calling America Wallis DO today on behalf of patient Tru Best stating that the patients mother called the office in regards to scheduling the patient for an appointment. However, office needs an referral/order for neurology and chart notes. Please fax to Dr. Reardon's office: [phone] Phone # if needed: [phone] Patient has been identified by name and birthdate. Closing statement: Results or non-symptom based questions: Thank you for calling [facility], your call will be returned within the next business day. Teresa So Pss documented in this encounter [facility] 11-08-2022 Telephone encounter Note We still have not received the referral. I called [facility] Gastroenterology and spoke with Teresa. Teresa stated per Dr. America Cardona notes a referral is to be placed but she did not see the referral in the pt chart. She stated that a message would be sent to the provider. Per your schedule your next available appt is not until January. [facility] 11-08-2022 Miscellaneous Notes We still have not received the referral. I called [facility] Gastroenterology and spoke with Teresa. Teresa stated per Dr. America Cardona notes a referral is to be placed but she did not see the referral in the pt chart. She stated that a message would be sent to the provider. Per your schedule your next available appt is not until January. If we have a referral, I have an 11 AM appointment tomorrow as of this writing. Pt mother called back in stating Pt is have a lot of stomach pains and Gastro Dr's are saying it's neurological. Pt's mother states she was told there was an opening for tomorrow for a HEMATOLOGY ONCOLOGY CONSULTANT so she was trying to get a Stat referral. Please advise Name of caller: Tanvir Contact phone number: [phone] Relationship to Patient: [facility] Provider: Caron Practice: [facility] Chief Complaint/Reason for Call: Tanvir called in stating that they need a callback at the offices earliest convenience with help with the referral and the patients chart. Please reached back out to the them as soon as possible, please advise and thank you Best time of day caller can be reached: any Patient advised that office/PCP has 24-48 business hours to return their call: Yes Name of caller: Tru Contact phone number: [phone] Relationship to Patient: patient with his mother Provider: Dr. Reardon Practice: [facility] Neuro Chief Complaint/Reason for Call: Pt and his mother would like to let the office know that a referral is being faxed over and are requesting a call back BRIANA regarding it. Pt's mother states that he is suffering from Gastroparesis and they are unsure why, but were told it may have a neurological component, and are wanting to know if it will be possible to be seen before January. Please contact pt to advise. Best time of day caller can be reached: Any Patient advised that office/PCP has 24-48 business hours to return their call: Yes documented in this encounter [facility] 11-06-2022 Note If we have a referra l, I have an 11 AM appointment tomorrow as of this writing. [facility] 11-06-2022 Telephone encounter Note If we have a referral, I have an 11 AM appointment tomorrow as of this writing. [facility] Phone: 11-06-2022 Telephone encounter Note Pt mother called back in stating Pt is have a lot of stomach pains and Gastro Dr's are saying it's neurological. Pt's mother states she was told there was an opening for tomorrow for a HEMATOLOGY ONCOLOGY CONSULTANT so she was trying to get a Stat referral. Please advise [facility] [place] [facility] 11-06-2022 Telephone encounter Note Name of caller: Tanvir Contact phone number: [phone] Relationship to Patient: [facility] Provider: Caron Practice: [facility] Chief Complaint/Reason for Call: Tanvir called in stating that they need a callback at the offices earliest convenience with help with the referral and the patients chart. Please reached back out to the them as soon as possible, please advise and thank you Best time of day caller can be reached: any Patient advised that office/PCP has 24-48 business hours to return their call: Yes [facility] [place] 11-02-2022 Telephone encounter Note Name of caller: Tru Contact phone number: [phone] Relationship to Patient: patient with his mother Provider: Dr. Reardon Practice: [facility] Neuro Chief Complaint/Reason for Call: Pt and his mother would like to let the office know that a referral is being faxed over and are requesting a call back BRIANA regarding it. Pt's mother states that he is suffering from Gastroparesis and they are unsure why, but were told it may have a neurological component, and are wanting to know if it will be possible to be seen before January. Please contact pt to advise. Best time of day caller can be reached: Any Patient advised that office/PCP has 24-48 business hours to return their call: Yes [facility] [place] 10-29-2022 Note Patient Outreach ([place]) TRU BEST ([id number]) 1 M Date Time Provider Department 10/29/22 NO PCP NETNAV During your visit today, we recorded the following information about you: Amandajose Dawkins 10/29/2022 10:42 AM Signed POPULATION HEALTH NAVIGATION OUTREACH Action/[facility] Support: Called pt to schedule an appt in Pain Management. Patient declined Patient Identified by Name and : NO Outreach Outcome/Action Spoke to patient / parent / legal guardian: Patient declined Did you use a PCP flex slot to schedule this appointment? N/A Reason for Outreach Care Gap or Scheduling/Wellness visits Payer: Payor: AETNA / Plan: AETNA [facility] / Product Type: PPO / Care Gap Reviewed:: Specialty Scheduling Reminder: Reminder note to check Health Maintenance for items below Health Maintenance items due: HEPATITIS B(1 of 3 - 3-dose series) Never done DTAP,TDAP,TD(1 - Tdap) Never done MENINGOCOCCAL B: Consider based on risk(1 of 2 - Risk Bexsero 2-dose series) Never done HPV VACCINE(1 - Male 2-dose series) Never done MENINGOCOCCAL CONJUGATE(1 - 2-dose series) Never done COVID-19 VACCINE(3 - Booster for Pfizer series) due on 12/23/2020 HEPATITIS C SCREENING Never done HIV SCREENING Never done DEPRESSION ASSESSMENT Never done Navigation Signature: Amanda Dawkins October 29, 2022 10:41 AM Allergies As of Date: 10/29/2022 (No Known Allergies) Date Reviewed: 09/27/2022 Reviewed by: America Wallis DO - Fully Assessed Prescriptions as of 10/29/2022 - amitriptyline (ELAVIL) 50 mg tablet Take 1 tablet by mouth daily at bedtime. - ALPRAZolam (XANAX) 0.25 mg tablet Take by mouth. - amitriptyline (ELAVIL) 25 mg tablet - metoclopramide HCl (REGLAN) 5 mg tablet - ondansetron orally disintegrating (ZOFRAN ODT) 4 mg disintegrating tablet - pantoprazole DR (PROTONIX) 20 mg tablet Take by mouth as directed. - oxyCODONE ir (OXYIR) 5 mg capsule Take 5 mg by mouth every 4 hours as needed for pain. - traMADol (ULTRAM) 50 mg tablet Take 50 mg by mouth every 6 hours as needed for pain. Problem List As Of Date: 10/29/2022 (None) Encounter Status:Closed by AMANDA JEAN BAPTISTE on 10/29/22 [facility] 10-29-2022 Note HNO ID: [id number] Author: Amanda Dawkins Service: ? Author Type: ? Type: Progress Notes Filed: 10/29/2022 10:42 AM Note Text: POPULATION HEALTH NAVIGATION OUTREACH Action/[place] Support: Called pt to schedule an appt in Pain Management. Patient declined Patient Identified by Name and : NO Outreach Outcome/Action Spoke to patient / parent / legal guardian: Patient declined Did you use a PCP flex slot to schedule this appointment? N/A Reason for Outreach Care Gap or Scheduling/Wellness visits Payer: Payor: AET / Plan: [employer] [facility] [employer] / Product Type: PPO / Care Gap Reviewed:: Specialty Scheduling Reminder: Reminder note to check Health Maintenance for items below Health Maintenance items due: HEPATITIS B(1 of 3 - 3-dose series) Never done DTAP,TDAP,TD(1 - Tdap) Never done MENINGOCOCCAL B: Consider based on risk(1 of 2 - Risk Bexsero 2-dose series) Never done HPV VACCINE(1 - Male 2-dose series) Never done MENINGOCOCCAL CONJUGATE(1 - 2-dose series) Never done COVID-19 VACCINE(3 - Booster for Pfizer series) due on 12/23/2020 HEPATITIS C SCREENING Never done HIV SCREENING Never done DEPRESSION ASSESSMENT Never done Navigation Signature: Amanda Dawkins October 29, 2022 10:41 AM [facility] 10-24-2022 Note HNO ID: [id number] Author: America Wallis DO Service: ? Author Type: Physician Type: Progress Notes Filed: 10/24/2022 4:41 PM Note Text: [facility] 10-01-2022 Miscellaneous Notes I would go ahead with the scope given the abdominal pain although the yield will be low. The ativan is fine he will write for it. Mom called. 1) patient is scheduled for a colonoscopy in October (local GI) but if you don't think he needs it mom would like to cancel it. (It was scheduled before patient saw Dr Wallis as local GI just didn't know what else to do 2) patient has been taking xanax 0.25mg tid for nausea. Mom was going to ask the pcp for a refill if its ok with Dr Wallis 3) patient having a lot of bloating/cramping. Mom asking if Dr Wallis has any recommendations to improve his symptoms. He is moving his bowels. documented in this encounter [facility] 10-01-2022 Miscellaneous Notes Letter faxed to [phone] with confirmation. Patient notified. Patient was seen on 09/27/22. Patient needs a letter stating he was in office faxed to: [phone] for school. documented in this encounter [facility] 09-28-2022 Miscellaneous Notes Outside labs for review. documented in this encounter [facility] 09-27-2022 Note HNO ID: [id number] Author: America Wallis DO Service: ? Author Type: Physician Type: Progress Notes Filed: 09/28/2022 4:45 PM Note Text: [facility] 09-27-2022 History of Presen t illness Narrative Images from the original note were not included. documented in this encounter [facility] 09-27-2022 Note HNO ID: [id number] Author: Jessica De León PSYD Service: ? Author Type: Physician Type: Progress Notes Filed: 09/27/2022 11:30 AM Note Text: [facility]IAL [facility]ICAL CONTA[facility] Date of Encounter: September 27, 2022 Identifying Information Name: Tru Best : 2005 Age: [age] year old Sex: male Race or Ethic Origin: IMPRESSIONS Tru Best is a 16 year old male with a history of nausea and vomiting who was referred to behavioral health by Dr. Wallis for evaluation and treatment of lifestyle and behavioral factors that may be contributing to symptoms. Patient reports acute onset of nausea, vomiting, and abdominal pain in June 2022. He denies significant symptom specific anxiety though when he is experiencing more severe pain, he can experience some changes in mood. He is still able to enjoy activities and maintains engagement in hobbies despite severe symptoms. Liquids are better tolerated than solids; he has so far been able to maintain hydration but is unable to tolerate solid foods. There is no underlying history of psychiatric conditions. Today provider introduced and provided rationale for diaphragmatic breathing in the context of regurgitation. We practiced in session and patient was encouraged to practice in the middle of meals (10 breaths) and after meals (10 breaths, every 5 minutes up to 30 minutes after eating) to reduce the likelihood of regurgitation. Patient was observed to be able to engage the diaphragm while breathing effectively. Provider introduced and provided rationale for gut directed hypnotherapy to address abdominal pain and nausea. Patient may benefit from 5-7 sessions of GDH, possibly incorporating some elements of ACT/CBT for managing response to pain also, to address visceral sensitivity and improve symptom self management. Initial Treatment Plan: -Diaphragmatic breathing to reduce regurgitation -5-7 sessions of GDH. He is appropriate to schedule with a fellow. -Patient provided samples of better. today -Patient should continue to follow up with medical team for further recommendations Chief Complaint: Tru Best is a 16 year old male with a history of nausea and vomiting who was referred to behavioral health by Dr. Wallis for evaluation and treatment of lifestyle and behavioral factors that may be contributing to symptoms. HPI: Patient reported acute onset of postprandial nausea, abdominal pain, discomfort in June 2022. Within a week patient began vomiting with every meal and even without eating (5-10x/day). He is currently taking zofran, reglan, tramadol, amitriptyline. Current symptoms include abdominal pain (lower abdominal pain), persistent nausea, vomiting (3x/day; generally effortless, sometimes can taste like undigested food if he has actually eaten). He would start to vomit 30-60 minutes after eating; vomiting does not improve pain, instead it can make pain worse. Symptoms are consistent throughout the day; there is not a worse time. Having 3-4 loose bowel movements per day--he is having bowel movements around the time he is vomiting. When he was 14, he started to experience syncope after exercising. He was eventually diagnosed with an arachnoid cyst. He eventually began having times where his heart rate was dropping into the 30s/40s. 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 CENTRAL SENSITIZATION []Pain-denied [x]Fatigue [x]Sleep difficulties-symptoms are reported to impact sleep ~3 nights/week. If there is significant abdominal pain, he will not be able to sleep. []Headaches-denied []Depression IMPACT OF SYMPTOMS ON QUALITY OF LIFE Typical dietary pattern: He is eating small portions. Can tolerate small amounts of burger, chicken sandwich. He is eating 2-3 bites of food at a time, 2x/day. He has lost 30 lbs over the course of illness--has regained about 5 lbs. There are not necessarily specific food triggers--all eating causes problems. Getting in a gallon of fluid per day, mostly water, gatorade, powerade. Smoothies sit better than solids [x]Loss of appetite []Loss of interest in eating-denied [x]Fear of eating MENTAL HEALTH HISTORY He was previously prescribed xanax for his nausea. He has not otherwise been prescribed psychiatric medications. He has not previously been engaged in psychotherapy. There have been periods of lower mood related to injuries but there is not evidence of clinical depression. Risk/Lethality: Current Suicidality: none Current Homicidality:none HEALTH BEHAVIORS ETOH and Substance Use: The patient denies any alcohol consumption. The patient is a lifelong nonsmoker. The patient denies current drug use. The patient notes 1 cup of coffee/day. Mathewe (more content not included)... [facility] 09-27-2022 Nurse Note Electrogastrography with test Operation/procedure performed. documented in this encounter [facility] 09-27-2022 History of Presen t illness Narrative INITIAL [facility] CONTACT Date of Encounter: September 27, 2022 Identifying Information Name: Tru Best : 2005 Age: [age] year old Sex: male Race or Ethic Origin: IMPRESSIONS Tru Best is a 16 year old male with a history of nausea and vomiting who was referred to behavioral health by Dr. Wallis for evaluation and treatment of lifestyle and behavioral factors that may be contributing to symptoms. Patient reports acute onset of nausea, vomiting, and abdominal pain in June 2022. He denies significant symptom specific anxiety though when he is experiencing more severe pain, he can experience some changes in mood. He is still able to enjoy activities and maintains engagement in hobbies despite severe symptoms. Liquids are better tolerated than solids; he has so far been able to maintain hydration but is unable to tolerate solid foods. There is no underlying history of psychiatric conditions. Today provider introduced and provided rationale for diaphragmatic breathing in the context of regurgitation. We practiced in session and patient was encouraged to practice in the middle of meals (10 breaths) and after meals (10 breaths, every 5 minutes up to 30 minutes after eating) to reduce the likelihood of regurgitation. Patient was observed to be able to engage the diaphragm while breathing effectively. Provider introduced and provided rationale for gut directed hypnotherapy to address abdominal pain and nausea. Patient may benefit from 5-7 sessions of GDH, possibly incorporating some elements of ACT/CBT for managing response to pain also, to address visceral sensitivity and improve symptom self management. Initial Treatment Plan: -Diaphragmatic breathing to reduce regurgitation -5-7 sessions of GDH. He is appropriate to schedule with a fellow. -Patient provided samples of better. today -Patient should continue to follow up with medical team for further recommendations Chief Complaint: Tru Best is a 16 year old male with a history of nausea and vomiting who was referred to behavioral health by Dr. Wallis for evaluation and treatment of lifestyle and behavioral factors that may be contributing to symptoms. HPI: Patient reported acute onset of postprandial nausea, abdominal pain, discomfort in June 2022. Within a week patient began vomiting with every meal and even without eating (5-10x/day). He is currently taking zofran, reglan, tramadol, amitriptyline. Current symptoms include abdominal pain (lower abdominal pain), persistent nausea, vomiting (3x/day; generally effortless, sometimes can taste like undigested food if he has actually eaten). He would start to vomit 30-60 minutes after eating; vomiting does not improve pain, instead it can make pain worse. Symptoms are consistent throughout the day; there is not a worse time. Having 3-4 loose bowel movements per day--he is having bowel movements around the time he is vomiting. When he was 14, he started to experience syncope after exercising. He was eventually diagnosed with an arachnoid cyst. He eventually began having times where his heart rate was dropping into the 30s/40s. 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 CENTRAL SENSITIZATION []Pain-denied [x]Fatigue [x]Sleep difficulties-symptoms are reported to impact sleep ~3 nights/week. If there is significant abdominal pain, he will not be able to sleep. []Headaches-denied []Depression IMPACT OF SYMPTOMS ON QUALITY OF LIFE Typical dietary pattern: He is eating small portions. Can tolerate small amounts of burger, chicken sandwich. He is eating 2-3 bites of food at a time, 2x/day. He has lost 30 lbs over the course of illness--has regained about 5 lbs. There are not necessarily specific food triggers--all eating causes problems. Getting in a gallon of fluid per day, mostly water, gatorade, powerade. Smoothies sit better than solids [x]Loss of appetite []Loss of interest in eating-denied [x]Fear of eating MENTAL HEALTH HISTORY He was previously prescribed xanax for his nausea. He has not otherwise been prescribed psychiatric medications. He has not previously been engaged in psychotherapy. There have been periods of lower mood related to injuries but there is not evidence of clinical depression. Risk/Lethality: Current Suicidality: none Current Homicidality:none HEALTH BEHAVIORS ETOH and Substance Use: The patient denies any alcohol consumption. The patient is a lifelong nonsmoker. The patient denies current drug use. The patient notes 1 cup of coffee/day. Current stressors/coping strategies: The patient reports the following stressors: medical problems Leisure/exercise: The patient's hobbies include working on cars, judo, kickboxing, wrestling, football, spending time outside. His symptoms have made it harder to participate in activities he enjoys but he has not so far avoided these activities. He enjoys riding his motorcycle. So far he is still able to enjoy these activities. Social History: Patient resides with his mother and father. He is a senior in high school. He has a girlfriend of 2 years. He describes having a supportive social network. Physical Health Status and Medical History PAST MEDICAL HISTORY: No past medical history on file. Past Surgical History: No past surgical history on file. Current Medications: Current Outpatient Medications Medication Sig Dispense Refill ALPRAZolam (XANAX) 0.25 mg tablet Take by mouth. amitriptyline (ELAVIL) 25 mg tablet metoclopramide HCl (REGLAN) 5 mg tablet ondansetron orally disintegrating (ZOFRAN ODT) 4 [address] disintegrating tablet pantoprazole DR (PROTONIX) 20 mg tablet Take by mouth as directed. predniSONE (DELTASONE) 10 mg tablet Take 30 mg by mouth. oxyCODONE ir (OXYIR) 5 mg capsule Take 5 mg by mouth every 4 hours as needed for pain. traMADol (ULTRAM) 50 mg tablet Take 50 mg by mouth every 6 hours as needed for pain. No current facility-administered medications for this visit. Behavioral Observation and Assessment Data: Patient was seen in clinic The patient was well-groomed. He was cooperative with the interview process. The patient had good eye contact. Appearance: Well dressed, well groomed Behavior: Behaves appropriately during the encounter Social Relatedness: Appropriate for age and developmental level Speech: The patient demonstrates appropriate tone, prosody, rogelio, phonetics, and syntax Mood:Euthymic Affect: Full and appropriate to topic Thought Content: The patient displays thought content appropriate to the interview. Thought Process:The thought process is appropriate for situation Hallucinations: No perceptual disturbances Delusions: No delusional thinking is evident Suicidal Ideas/Plans: The patient denies suicidal ideation, intent or plan Homicidal Ideas/Plans: Patient denies any homicidal ideation, plan or intent at this time. Orientation: Person, Place, Time and Situation Memory: Recent intact, Remote intact, and Immediate intact Concentration: Good Attention: The patient demonstrated full attention and focus throughout the interview Fund of Knowledge: Appropriate for age and developmental level Judgment: Demonstrates age appropriate judgment Insight: demonstrates good insight The patient's motivation for treatment was judged to be good. Diagnoses: (F54) Psychological factors affecting medical condition (primary encounter diagnosis) (K31.84) Gastroparesis Estimated Length of Treatment: 5-7 sessions CPT Code for Visit: 24668 Psychiatric diagnostic evaluation Face to Face patient Contact Time: 40 minutes Supervising Licensed Psychologist & Billing Provider: Jessica De León PSYD documented in this encounter [facility] 09-27-2022 Note HNO ID: [id number] Author: America Wallis, DO Service: ? Author Type: Physician Type: Progress Notes Filed: 09/27/2022 8:32 AM Note Text: GASTROPARESIS CONSULT Patient is referred by Dr. Kyle Lay Friend for an opinion regarding GP and my final recommendations will be communicated back to the requesting physician by way of shared Medical Record. PRESENTING COMPLAINT AND HISTORY I saw this 16y/o in consult for possible GP. The symptoms started without warning in Jun. He was sick with a URI around the same time. The diarrhea is new for him also. He has a hx arachnoid cyst on the left side of the brain as well as occipital nerve impingement. He has had nerve block and IVIG treatment at age 14. He had a nerve block on Saturday. He has had some positive effect from oral reglan. He is typically very physically active. The bowels are moving 3-4 times a day. Gastroparesis Symptoms Reflux/heartburn: No Abdominal pain/discomfort: Yes Weight loss: Yes Lost 30 lbs in 3 months Weight gain: yes Gained 5 lbs in 1 months Diarrhea: Yes every bm Constipation: No Malnutrition: patient feels malnourished Gastroparesis cardinal symptom index 1. Nausea: 3-4 2. Retchin 3. Vomitin 4. Stomach fullness: 5 5. Not able to finish a normal-sized meal: 5 6. Feeling excessively full after meals: 5 7. Loss of appetite: 5 8. Bloating (feeling like you need to loosen your clothes): 5 9. Stomach or belly visibly larger: 3-4 Scale (0-none; 1-very mild; 2-mild; 3-moderate; 4-severe; 5-very severe) MEDICATION HISTORY Promotility Drugs - Reglan (Metoclopramide): Yes - Motilium (Domperidone): No - Erythromycin (E-mycin): No - Propulsid (Cisapride)_: No Other - Tricyclic Antidepressants (nortriptyline - Pamelor; amitriptyline - Elavil): Yes - Buspirone (Buspar): No - Mirtazapin (Remeron): No Anti-Nausea Medications - Compazine (Prochlorperazine): No - Phenergan (Promethazine): Yes - Benadryl (Diphenhydramine): Yes - Zofran (Ondansetron): Yes - Scopace (Scopolamine Patch): Yes - Tigan (Trimethobenzamide)_: No Constipation Medications - Bulking Agents (Metamucil,Citrucel, Fibercon): Yes - Osmotic Laxatives (MOM, Polyethylene glycol (PEG), lactulose, sorbitol,MiraLax, Chronulal, Cephulac,Xylitol): No - Stimulant Laxatives (Ex-Lax, Senokot,Correctol, Dulcolax): No - Stool Softeners (Colace): No - Chloride Channel Activator (Amitiza): No - Linzess: No - Trulance: No - Motegrity: No Pain Medications - Does the patient see a dip painter for chronic abdominal pain?No - Is the patient taking narcotic pain medication for chronic abdominal pain? Yes - Narcotic Medications: (Tramadol, Fentanyl, codeine, hydrocodone, Hydromorphone, methadone, morphine, Oxycodone) Yes Drug use - History or current drug use (Marijuana, Cocaine, Heroine, etc...) No Eating Disorders - Does the patient have a history of eating disorders No If yes, please explain: n/a Psychiatric Disorders - Does the patient have a history of psychiatric disorders including PTSD: No If yes, please explain: n/a Nutrition - Has the patient met with a preparator for diet recommendations with Gastroparesis? Yes - Jejunostomy (J-tube): _No - Gastrostomy (G-tube): No - Gastro-Jejunostomy (GJ-tube): _No - Nasojejunal (NJ-tube): _No - Nasogastric (NG-tube): _No - TPN (IV): _No - IV home hydration (IV): _No Medical Records - Has the patient had a smart capsule study completed? No - Does the patient have a history of any foregut surgery (vagotomy, hiatal hernia repair/KEN Fundoplication, Heller Myotomy, gastrectomy, gastric bypass)?No If surgery, recent UGI? No - EGD: Yes - Botox Injections: No If yes was the Botox effective, and for how long: n/a Patient Name Tru Best Age [age] year old Gastroparesis Consult Test Date Completed Results Labs EGD Findings: Impression: Pathology: EGD Findings: Impression: Pathology: EGD Findings: Impression: Pathology: Gastric Emptying Study Findings: Impression: CT Abd/Pelvis Findings: Impression: Capsule Study Findings: Impression: Findings: Impression: Consults GI No past surgical history on file. No current outpatient medications on file. No current facility-administered medications for this visit. ALLERGIES Not on File No family history on file. GI SPECIFIC ROS Difficulty swallowing / foods sticking in throat: No Hoarseness: No Chronic cough: sometimes Regurgitation: Yes Chest pain: No Recent change in bowel movements: diarrhea 3 months ago Bloody or black, bowel movements: No Loss of control of bowel movements: Yes Night sweats, fever, chills: Yes Thought or memory problems: No Fluid in abdomen (ascites): No Prominent leg swelling: No Vomiting blood: No REVIEW OF SYSTEMS GENERAL: Weight loss HEENT: No changes in hearing or vision, no (more content not included)... [facility] 09-27-2022 History of Presen t illness Narrative GASTROPARESIS CONSULT Patient is referred by Dr. Kyle Lay Friend for an opinion regarding GP and my final recommendations will be communicated back to the requesting physician by way of shared Medical Record. PRESENTING COMPLAINT & HISTORY I saw this 16y/o in consult for possible GP. The symptoms started without warning in Jun. He was sick with a URI around the same time. The diarrhea is new for him also. He has a hx arachnoid cyst on the left side of the brain as well as occipital nerve impingement. He has had nerve block and IVIG treatment at age 14. He had a nerve block on Saturday. He has had some positive effect from oral reglan. He is typically very physically active. The bowels are moving 3-4 times a day. Gastroparesis Symptoms Reflux/heartburn: No Abdominal pain/discomfort: Yes Weight loss: Yes Lost 30 lbs in 3 months Weight gain: yes Gained 5 lbs in 1 months Diarrhea: Yes every bm Constipation: No Malnutrition: patient feels malnourished Gastroparesis cardinal symptom index 1. Nausea: 3-4 2. Retchin 3. Vomitin 4. Stomach fullness: 5 5. Not able to finish a normal-sized meal: 5 6. Feeling excessively full after meals: 5 7. Loss of appetite: 5 8. Bloating (feeling like you need to loosen your clothes): 5 9. Stomach or belly visibly larger: 3-4 Scale (0-none; 1-very mild; 2-mild; 3-moderate; 4-severe; 5-very severe) MEDICATION HISTORY Promotility Drugs - Reglan (Metoclopramide): Yes - Motilium (Domperidone): No - Erythromycin (E-mycin): No - Propulsid (Cisapride)_: No Other - Tricyclic Antidepressants (nortriptyline - Pamelor; amitriptyline - Elavil): Yes - Buspirone (Buspar): No - Mirtazapin (Remeron): No Anti-Nausea Medications - Compazine (Prochlorperazine): No - Phenergan (Promethazine): Yes - Benadryl (Diphenhydramine): Yes - Zofran (Ondansetron): Yes - Scopace (Scopolamine Patch): Yes - Tigan (Trimethobenzamide)_: No Constipation Medications - Bulking Agents (Metamucil,Citrucel, Fibercon): Yes - Osmotic Laxatives (MOM, Polyethylene glycol (PEG), lactulose, sorbitol,MiraLax, Chronulal, Cephulac,Xylitol): No - Stimulant Laxatives (Ex-Lax, Senokot,Correctol, Dulcolax): No - Stool Softeners (Colace): No - Chloride Channel Activator (Amitiza): No - Linzess: No - Trulance: No - Motegrity: No Pain Medications - Does the patient see a dip painter for chronic abdominal pain?No - Is the patient taking narcotic pain medication for chronic abdominal pain? Yes - Narcotic Medications: (Tramadol, Fentanyl, codeine, hydrocodone, Hydromorphone, methadone, morphine, Oxycodone) Yes Drug use - History or current drug use (Marijuana, Cocaine, Heroine, etc...) No Eating Disorders - Does the patient have a history of eating disorders No If yes, please explain: n/a Psychiatric Disorders - Does the patient have a history of psychiatric disorders including PTSD: No If yes, please explain: n/a Nutrition - Has the patient met with a preparator for diet recommendations with Gastroparesis? Yes - Jejunostomy (J-tube): _No - Gastrostomy (G-tube): No - Gastro-Jejunostomy (GJ-tube): _No - Nasojejunal (NJ-tube): _No - Nasogastric (NG-tube): _No - TPN (IV): _No - IV home hydration (IV): _No Medical Records - Has the patient had a smart capsule study completed? No - Does the patient have a history of any foregut surgery (vagotomy, hiatal hernia repair/KEN Fundoplication, Heller Myotomy, gastrectomy, gastric bypass)?No If surgery, recent UGI? No - EGD: Yes - Botox Injections: No If yes was the Botox effective, and for how long: n/a Patient Name Tru Best Age [age] year old Gastroparesis Consult Test Date Completed Results Labs EGD Findings: Impression: Pathology: EGD Findings: Impression: Pathology: EGD Findings: Impression: Pathology: Gastric Emptying Study Findings: Impression: CT Abd/Pelvis Findings: Impression: Capsule Study Findings: Impression: Findings: Impression: Consults GI No past surgical history on file. No current outpatient medications on file. No current facility-administered medications for this visit. ALLERGIES Not on File No family history on file. GI SPECIFIC ROS Difficulty swallowing / foods sticking in throat: No Hoarseness: No Chronic cough: sometimes Regurgitation: Yes Chest pain: No Recent change in bowel movements: diarrhea 3 months ago Bloody or black, bowel movements: No Loss of control of bowel movements: Yes Night sweats, fever, chills: Yes Thought or memory problems: No Fluid in abdomen (ascites): No Prominent leg swelling: No Vomiting blood: No REVIEW OF SYSTEMS GENERAL: Weight loss HEENT: No changes in hearing or vision, no nose bleeds or other nasal problems RESPIRATORY: Negative for cough, hemoptysis, wheezing, COPD, dyspnea or shortness of breath CARDIOVASCULAR: Negative for chest pain, leg swelling, hypertension, CHF or palpitations : No history of dysuria, frequency or incontinence BLOCK MECHANIC: NA MUSCULOSKELETAL: Negative for joint pain or swelling, back pain or muscle pain SKIN: Negative for lesions, rash, and itching PSYCH: sleep fragmented ENDOCRINE: Negative for cold or heat intolerance, polyuria, polydipsia and goiter NEURO: SEE HPI PHYSICAL EXAMINATION There were no vitals taken for this visit. General appearance: alert and in no acute distress Skin: Skin color, texture, turgor normal, no suspicious rashes or lesions Head: normal Eyes: Anicteric sclera. Pupils are equally round and reactive to light. Extraocular movements are intact. Ears: Negative Nose/Sinuses: Negative Oropharynx: Lips, mucosa, and tongue normal, teeth and gums normal, oropharynx normal Neck: Supple, no adenopathy; thyroid symmetric, normal size, no bruits Back: motor and sensory appear to be normal Lungs: Unlabored on room air Heart: RRR without murmur, gallop, or rubs. No ectopy Abdomen: Normal abdominal exam Extremities: Negative findings: No deformities present Musculoskeletal: Negative findings: No deformities present Peripheral pulses: Normal Neuro: Negative findings: speech normal, mental status intact, cranial nerves 2-12 intact Plan Given the risk of autoimmune gastrointestinal dysmotility (AGID) as a possible cause for this patient's symptoms, as well as the fact the patient has yet to be evaluated for AGID, a full workup will be undertaken. If the antibody tests reveal a positive result the patient will then need to be treated with IVIG therapy as this is the only known treatment available at this time for AGID. Encounter Diagnosis ICD-10-CM 1. Gastroparesis K31.84 CK CREATINE KINASE LD LACTATE DEHYDRO HGB A1C TSH BLD T4 FREE/FREE THYROX PYRUVATE+LACTATE BL AMINO ACIDS, PLASMA W/ CONSULTATION CARNITINE FREE/TOTAL, PLASMA ACETYLCHOLINE REC BINDING AB VOLTAGE GATED CA IGG VOLTAGE-GATED POTASSIUM CARDENAS AB GLUTAMIC AC DECARBOXYLASE AB ORGANIC ACIDS UR, QUANT W/CONSULTATION IGA BLD IGG IGM C-REACTIVE PROTEIN (CRP) SED RATE [facility] PANEL 13, SERUM America Wallis DO 09/25/2022 documented in this encounter [facility] 09-18-2022 Miscellaneous Notes Egg is in have him see just me and marcin Mother sent phone number of [phone] to call and register the patient. She will be sending copies of the cards and the referral letter. Patient Needs to be Registered. - See nursing Notes below. Dr. Wallis has Agreed to see this patient in GP Clinic. I have no other information than listed below. All records received have been scanned into the system. Pre- Appointment Assessment GI DX: Gastroparesis, Abdominal Pain, Nausea, Vomiting, Severe weight loss. Referring Physician: Unknown ( SEE NURSING NOTES BELOW) Records are in: Care everywhere Epic Scanned Documents x Information received Yes No Percentage Retained Unknown 2 hr GES 4 hr GES T1/2 90 minute *Notes: Dr. Wallis has Agreed to see this patient with 60 Min GES done with Oatmeal in Scanned Documents. Information Received Yes No Date Unknown Insurance Cards x Referral Letter x U/S of Abdomen x CT of Abdomen x EGD/ EGD with Botox x Colonoscopy x Labs x List of Meds History and Physical Notes x Other Reports x *Notes: Has the patient had ? Yes No Date if known Unknown Smart Pill x Ken/Fundoplication / Hiatal Hernia Repair x Gastric By Pass x Gastric Sleeve x POP/Pyloroplasty x Gastric Pacer x TPN x GJ Tube x *Notes: Called [facility]. Advised Dr Wallis said there is no substitution for Eggs for the gastric emptying study. SHAISTA Beebe Called patient's mom. Advised there is no substitution for eggs for the GES study. I spoke to Dr Wallis. Dr Wallis has authorized that he will see patient, even though he has only had the 2 hour GES. Mom emailed all of the reports to Call received from Tracy from [facility] asking what else he could possibly eat for the GES? Tracy was told Granola my the patients mom and the radiologist would need instructions on any other preparation for the test. Please advise Patient's mom called. Patient has had GP symptoms for 3 months and has been hospitalized at his local hospital. 1 hour GES showed severe delay (done local) Attempted 4 hour GES today and vomited after ingesting eggs/toast. Patient is on protonix, xanax for nausea, tramadol for pain, zofran for nausea, reglan 5mg, amitriptyline. Patient has lost over 20 lbs. Symptoms include nausea, vomiting, abdominal pain. No constipation per mom. Asking for suggestions or if there is another test to do so patient can get appointment with Dr Wallis. Mom will email the GES report (the 2 hour) Mom is: Ana (RN) [phone] documented in this encounter [facility] documented in this encounter [facility] note* Diagnosis Gastroparesis- Primary documented in this encounter [facility] note* Diagnosis Psychological factors affecting medical condition- Primary Psychic factors associated with diseases classified elsewhere Gastroparesis documented in this encounter [facility] note* Diagnosis Gastroparesis- Primary documented in this encounter [facility] note* Diagnosis Gastroparesis- Primary documented in this encounter [facility] note* Diagnosis Intractable nausea and vomiting- Primary Arachnoid cyst Cerebral cysts Syncope and collapse documented in this encounter [facility] note* Diagnosis Nausea and vomiting, unspecified vomiting type- Primary Chronic abdominal pain Abdominal pain, unspecified site Gastroparesis documented in this encounter [facility] note* Diagnosis Arachnoid cyst- Primary Cerebral cysts Syncope and collapse Autonomic dysfunction Unspecified disorder of autonomic nervous system documented in this encounter [facility] note* Diagnosis Orthostatic lightheadedness- Primary Dizziness and giddiness documented in this encounter [facility] note* Diagnosis Autonomic dysfunction- Primary Unspecified disorder of autonomic nervous system documented in this encounter [facility] note* Diagnosis Arachnoid cyst Cerebral cysts documented in this encounter [facility] note* Diagnosis Gastroparesis- Primary Cervicalgia documented in this encounter [facility] note* Diagnosis Gastroparesis- Primary documented in this encounter [facility] note* Diagnosis History of syncope- Primary Other specified personal history presenting hazards to [facility] Gastroparesis Arachnoid cyst Cerebral cysts documented in this encounter [facility] for referral (narrative)* Consultation (Routine) - Pending Review Specialty Diagnoses / Procedures Referred By Dallas ramos Referred To Contact Cardiology Diagnoses Syncope and collapse Procedures [place] OFFICE/OUTPATIENT [facility] 60-74 MINUTES Yahaira Reardon MD [address] [facility] [address] [place] [address] Zeny Enriquez [address] [id number] Referral ID Status Reason Start Date Expiration Date Visits Requested Visits Authorized [id number] Pending Review Specialty Services Required 11/12/2022 11/12/2023 1 1 * Imaging (Routine) - Pending Review Specialty Diagnoses / Procedures Referred By Contac t Referred To Contact Radiology Diagnoses Intractable nausea and vomiting Arachnoid cyst Syncope and collapse Procedures MR brain w and wo contrast Yahaiar Reardon MD [address] [place] [address] [place] [address] Referral ID Status Reason Start Date Expiration Date V isits Requested Visits Authorized [id number] Pending Review 11/12/2022 05/11/2023 1 1 [facility] for referral (narrative)* Diagnostic Procedure Only (Routine) - Pending Review Specialty Diagnoses / Procedures Referred By Contac t Referred To Contact XR IMAGING Diagnoses Cervicalgia Procedures XR CERVICAL 2V FLEX/EXT RADEX SPINE CERVICAL 2 OR 3 VIEWS Tomasz Hoffmann APRN.CNP [address] [place] [address] Xr Imaging [address] [address] Referral ID Status Reason Start Date Expiration Date Visits Requested Visits Authorized [id number] Pending Review Auto-Generat ed Referral 02/06/2023 03/07/2024 1 1 * Diagnostic Procedure Only (Routine) - Pending Review Specialty Diagnoses / Procedures Referred By Contac t Referred To Contact XR IMAGING Diagnoses Cervicalgia Procedures XR CERV OTHER 4V AP/LAT/OBL RADEX SPINE CERVICAL 4 OR 5 VIEWS Tomasz Hoffmann APRN.CNP [address] [phone] Xr Imaging [facility] Referral ID Status Reason Start Date Expiration Date Visits Requested Visits Authorized [id number] Pending Review Auto-Generat ed Referral 02/06/2023 03/07/2024 1 1 [facility] Diagnostic Procedure Only (Routine) - Pending Review Specialty Diagnoses / Procedures Referred By Dallas t Referred To Contact MOLECULAR & FUNCTIONAL IMAGING Diagnoses Gastroparesis Procedures NM GASTRIC EMPTYING SOLID GASTRIC EMPTYING STUDY America Wallis DO [address] [place] [address] Molecular & Functional Imaging [address] [place] [address] Referral ID Status Reason Start Date Expiration Date Visits Requested Visits Authorized [id number] Pending Review Auto-Generat ed Referral 05/17/2023 06/15/2024 1 1 * Outpatient Procedure (Routine) - Pending Review Specialty Diagnoses / Procedures Referred By Contac t Referred To Contact [facility] Diagnoses Gastroparesis Procedures CAPSULE ENDOSCOPY SMART GI TRANSIT & PRES XIOMARA WIRELESS CAPSULE W/INTERP America Wallis DO [address] [place] [phone] [facility] [address] [place] [address] Referral ID Status Reason Start Date Expiration Date Visits Requested Visits Authorized [id number] Pending Review Auto-Generat ed Referral 05/17/2023 05/17/2024 1 1 [facility] Summary Purpose Family History No Family History Records FoundNo Family History Records FoundNo Family History Records Found Advance Directives No Advanced Directives Records FoundNo Advanced Directives Records FoundNo Advanced Directives Records Found Reason for Referral Specialty Diagnoses / Procedures Referred By Contac t Referred To Contact Neurosurgery Diagnoses Arachnoid cyst Syncope and collapse Autonomic dysfunction Procedures CONSULT TO NEUROSURGERY OFFICE/OUTPATIENT NEW HIGH MDM 60-74 MINUTES Tomasz Hoffmann APRN.WELDING MACHINE OPERATOR HELPER [employer] [address] [id number] Referral ID Status Reason Start Date Expiration Date Visits Requested Visits Authorized [id number] Authorized PCP Requested Referral 12/26/2022 12/26/2023 1 1 Specialty Diagnoses / Procedures Referred By Dallas ramos Referred To Contact Procedures CARDIOVASCULAR MEDICINE OP FOLLOW UP APPT ORDER Zeny Enriquez DO [address] [place] [address] Referral ID Status Reason Start Date Expiration Date Visits Requested Visits Authorized [id number] Ref Not Required PCP Requested Referral 05/17/2023 05/16/2024 1 1 Medications Administered Section Inactive Administered Medications - up to 3 most recent administrations Medication Order MAR Action Action Date Dose Rate Site acetylcholine 10% solution - cchs compounding 20 mL, IRRIGATION, ONCE (UP TO 30 DAYS AMB), 1 dose, On Mckayla 01/10/23 at 0830, Protect from Light. Refrigerate Given 01/10/2023 8:30 AM EDT 20 mL Additional Source Comments Source Comments (unrecognize d section and content) In the event this informatio n is protected by the Federal Confidentiality of Alcohol and Drug Abuse Patient Records regulations: The Federal rules restrict any use of the information to criminally investigate or prosecute any alcohol or drug abuse patient.[facility] the event this information is protected by the Federal Confidentiality of Alcohol and Drug Abuse Patient Records regulations: The Federal rules restrict any use of the information to criminally investigate or prosecute any alcohol or drug abuse patient.[facility] the event this information is protected by the Federal Confidentiality of Alcohol and Drug Abuse Patient Records regulations: The Federal rules restrict any use of the information to criminally investigate or prosecute any alcohol or drug abuse patient.[facility] the event this information is protected by the Federal Confidentiality of Alcohol and Drug Abuse Patient Records regulations: The Federal rules restrict any use of the information to criminally investigate or prosecute any alcohol or drug abuse patient.[facility] the event this information is protected by the Federal Confidentiality of Alcohol and Drug Abuse Patient Records regulations: The Federal rules restrict any use of the information to criminally investigate or prosecute any alcohol or drug abuse patient.[facility] the event this information is protected by the Federal Confidentiality of Alcohol and Drug Abuse Patient Records regulations: The Federal rules restrict any use of the information to criminally investigate or prosecute any alcohol or drug abuse patient.[facility] the event this information is protected by the Federal Confidentiality of Alcohol and Drug Abuse Patient Records regulations: The Federal rules restrict any use of the information to criminally investigate or prosecute any alcohol or drug abuse patient.[facility] the event this information is protected by the Federal Confidentiality of Alcohol and Drug Abuse Patient Records regulations: The Federal rules restrict any use of the information to criminally investigate or prosecute any alcohol or drug abuse patient.[facility] the event this information is protected by the Federal Confidentiality of Alcohol and Drug Abuse Patient Records regulations: The Federal rules restrict any use of the information to criminally investigate or prosecute any alcohol or drug abuse patient.[facility] the event this information is protected by the Federal Confidentiality of Alcohol and Drug Abuse Patient Records regulations: The Federal rules restrict any use of the information to criminally investigate or prosecute any alcohol or drug abuse patient.[facility] Hospital[facility] the event this information is protected by the Federal Confidentiality of Alcohol and Drug Abuse Patient Records regulations: The Federal rules restrict any use of the information to criminally investigate or prosecute any alcohol or drug abuse patient.[facility] Hospital[facility] the event this information is protected by the Federal Confidentiality of Alcohol and Drug Abuse Patient Records regulations: The Federal rules restrict any use of the information to criminally investigate or prosecute any alcohol or drug abuse patient.[facility] Hospital[facility] the event this information is protected by the Federal Confidentiality of Alcohol and Drug Abuse Patient Records regulations: The Federal rules restrict any use of the information to criminally investigate or prosecute any alcohol or drug abuse patient.[facility] Hospital[facility] the event this information is protected by the Federal Confidentiality of Alcohol and Drug Abuse Patient Records regulations: The Federal rules restrict any use of the information to criminally investigate or prosecute any alcohol or drug abuse patient.[facility] Hospital[facility] the event this information is protected by the Federal Confidentiality of Alcohol and Drug Abuse Patient Records regulations: The Federal rules restrict any use of the information to criminally investigate or prosecute any alcohol or drug abuse patient.[facility] Hospital[facility] the event this information is protected by the Federal Confidentiality of Alcohol and Drug Abuse Patient Records regulations: The Federal rules restrict any use of the information to criminally investigate or prosecute any alcohol or drug abuse patient.[facility] Hospital[facility] the event this information is protected by the Federal Confidentiality of Alcohol and Drug Abuse Patient Records regulations: The Federal rules restrict any use of the information to criminally investigate or prosecute any alcohol or drug abuse patient.[facility] Hospital[facility] the event this information is protected by the Federal Confidentiality of Alcohol and Drug Abuse Patient Records regulations: The Federal rules restrict any use of the information to criminally investigate or prosecute any alcohol or drug abuse patient.[facility] Hospital[facility] the event this information is protected by the Federal Confidentiality of Alcohol and Drug Abuse Patient Records regulations: The Federal rules restrict any use of the information to criminally investigate or prosecute any alcohol or drug abuse patient.[facility] HospitalIn the event this information is protected by the Federal Confidentiality of Alcohol and Drug Abuse Patient Records regulations: The Federal rules restrict any use of the information to criminally investigate or prosecute any alcohol or drug abuse patient.[facility] HospitalIn the event this information is protected by the Federal Confidentiality of Alcohol and Drug Abuse Patient Records regulations: The Federal rules restrict any use of the information to criminally investigate or prosecute any alcohol or drug abuse patient.[facility] HospitalIn the event this information is protected by the Federal Confidentiality of Alcohol and Drug Abuse Patient Records regulations: The Federal rules restrict any use of the information to criminally investigate or prosecute any alcohol or drug abuse patient.[facility] HospitalIn the event this information is protected by the Federal Confidentiality of Alcohol and Drug Abuse Patient Records regulations: The Federal rules restrict any use of the information to criminally investigate or prosecute any alcohol or drug abuse patient.[facility] HospitalIn the event this information is protected by the Federal Confidentiality of Alcohol and Drug Abuse Patient Records regulations: The Federal rules restrict any use of the information to criminally investigate or prosecute any alcohol or drug abuse patient.[facility] HospitalIn the event this information is protected by the Federal Confidentiality of Alcohol and Drug Abuse Patient Records regulations: The Federal rules restrict any use of the information to criminally investigate or prosecute any alcohol or drug abuse patient.[facility] HospitalIn the event this information is protected by the Federal Confidentiality of Alcohol and Drug Abuse Patient Records regulations: The Federal rules restrict any use of the information to criminally investigate or prosecute any alcohol or drug abuse patient.[facility] HospitalIn the event this information is protected by the Federal Confidentiality of Alcohol and Drug Abuse Patient Records regulations: The Federal rules restrict any use of the information to criminally investigate or prosecute any alcohol or drug abuse patient.[facility] Reason for Visit (unrecogniz ed section and content) Specialty Diagnoses / Procedures Referred By Contac t Referred To Contact Neurosurgery Diagnoses Arachnoid cyst Syncope and collapse Autonomic dysfunction Procedures CONSULT TO NEUROSURGERY OFFICE/OUTPATIENT [facility] 60-74 MINUTES Tomasz Hoffmann APRN.[address] [address] Referral ID Status Reason Start Date Expiration Date V isits Requested Visits Authorized [id number] Closed PCP Requested Referral 12/26/2022 12/26/2023 1 1 Reason Comments Gastroparesis Specialty Diagnoses / Procedures Referred By Contac t Referred To Contact GASTROENTEROLOGY Diagnoses Gastroparesis Procedures OFFICE/OUTPATIENT [facility] 60-74 MINUTES OFFICE/OUTPATIENT [facility] MDM 30-39 MIN Kyle Molina DO [address] [place] [id number] America Wallis DO [facility] [address] [place] [address] Referral ID Status Reason Start Date Expiration Date Visits Requested Visits Authorized [id number] Authorized Patient Cleared - Admin/Chairm an/Director advise to proceed 09/20/2022 11/19/2022 4 4 Reason Comments Nausea & Vomiting Reason Comments Patient Question Pre Appointment Assessment Reason Comments Outside labs Reason Comments return to school letter Reason Comments Patient Update Patient Question Reason Comments Orders Reason Comments Appointment Clarification on yaakov ointment Reason Onset Date Comments Referral 11/02/2022 Reason Comments New Patient nausea and vomiting Reason Comments Gastroparesis Abdominal Pain Reason Comments Appointment Reason Comments Imaging Reports Reason Comments Triage Internal referral Reason Comments Procedure Specialty Diagnoses / Procedures Referred By Contac t Referred To Contact Neurology / NEUROMUSCULAR Diagnoses Gastroparesis Orthostatic hypotension Gastroparesis [K31.84] Orthostatic hypotension [I95.1] Procedures PARASYMP & SYMP NRV FUNCJ HRT RATE VARIABILITY NEUR CARDIO AUTO REF W/TILT [facility] [address] [phone] Referral ID Status Reason Start Date Expiration Date Visits Re quested Visits Authorized [id number] Closed 01/10/2023 06/09/2023 1 1 Specialty Diagnoses / Procedures Referred By Contact Referred To Contact Neurology / NEUROMUSCULAR Diagnoses Gastroparesis Gastroparesis [K31.84] Procedures TESTING AUTONOMIC NERVOUS SYSTEM FUNCTION NEUR QSART [facility] [address] [place] [address] Referral ID Status Reason Start Date Expiration Date Visits Re quested Visits Authorized [id number] Closed 01/10/2023 06/09/2023 1 1 Reason Comments Established Patient Reason Comments BRIANA consult to neruo-opthalmology (unrecognized sect ion and content) No Status Records FoundNo Status Records FoundNo Status Records Found INFORMATION SOURCE (unrecogn ized section and content) DATE CREATED AUTHOR AUTHOR'S ORGANIZ ATION 11/21/2022 [facility] DATE CREATED AUTHOR AUTHOR'S ORGANIZ ATION 06/02/2023 [facility] Care Teams (unrecognized sec tion and content) Irrigator Valve Pipe Relationship Specialty Start Date End Date [facility] [address] [place] [address] PCP - General 11/12/22 Irrigator Valve Pipe Relationship Specialty Start Date End Date Tomasz Hoffmann, ELECTRICAL CAD DESIGNER.WELDING MACHINE OPERATOR HELPER [employer] [address] [place], [place] [phone] NI Referring Team 01/21/23 Irrigator Valve Pipe Relationship Specialty Start Date End Date Tomasz Hoffmann, ELECTRICAL CAD DESIGNER.WELDING MACHINE OPERATOR [employer] [address] [place], [place] [phone] NI Referring Team 01/21/23 Irrigator Valve Pipe Relationship Specialty Start Date End Date Tomasz Hoffmann, ELECTRICAL CAD DESIGNER.WELDING MACHINE OPERATOR [employer]PER [employer] [address] [place], [place] [phone] NI Referring Team 01/21/23 Irrigator Valve Pipe Relationship Specialty Start Date End Date Tomasz Hoffmann, ELECTRICAL CAD DESIGNER.WELDING MACHINE OPERATOR [employer] [address] [place] [address] NI Referring Team 01/21/23 Irrigator Valve Pipe Relationship Specialty Start Date End Date Tomasz Hoffmann, ELECTRICAL CAD DESIGNER.WELDING MACHINE OPERATOR [employer] [address] [place], [place] [phone] NI Referring Team 01/21/23 Irrigator Valve Pipe Relationship Specialty Start Date End Date Tomasz Hoffmann, ELECTRICAL CAD DESIGNER.WELDING MACHINE OPERATOR [employer]PER [employer] [address] [place], [place] [phone] NI Referring Team 01/21/23 Irrigator Valve Pipe Relationship Specialty Start Date End Date Tomasz Hoffmann, ELECTRICAL CAD DESIGNER.WELDING MACHINE OPERATOR HELPER [employer] [address] [place], [place] [phone] NI Referring Team 01/21/23 FOR RECORDS PERTAINING TO PATIENTS WHO ARE OR HAVE BEEN ENROLLED IN A CHEMICAL DEPENDENCY/SUBSTANCEABUSE PROGRAM, SOME INFORMATION MAY BE OMITTED. This clinical summary was aggregated from multiple sources. Caution should be exercised in using it in the provision of clinical care. This summary normalizes information from multiple sources, and as a consequence, information in this document may materially change the coding, format and clinical context of patient data. In addition, data may be omitted in some cases. CLINICAL DECISIONS SHOULD BE BASED ON THE PRIMARY CLINICAL RECORDS. [facility] [facility]. provides no warranty or guarantee of the accuracy or completeness of information in this document.
== END 2023-06-28 15:10 | disposition home or self-care (01) ==
LOC: ED 14:57
PROVIDERS: Emergency Provider Emergency Medicine; PCP Family Medicine; Visit Provider Emergency Medicine
DX: S16.1XXA Strain of muscle, fascia and tendon at neck level, initial encounter (principal); M25.511 Pain in right shoulder; V48.5XXA Car driver injured in noncollision transport accident in traffic accident, initial encounter; J45.909 Unspecified asthma, uncomplicated; Z79.899 Other long term (current) drug therapy
CPT/HCPCS: 73030; 99282

== ENCOUNTER → 2024-09-02 | Outpatient (CLI) | payer OTHER, SELFPAY ==
--- NOTE | 2024-09-02 15:09 | US_ITS ---
PROCEDURE: Ultrasound of the right wrist. 09/02/2024 REASON FOR EXAM: Palpable abnormality volar right wrist. TECHNIQUE: Targeted ultrasound of the volar right wrist was performed. COMPARISON: None available FINDINGS: Targeted ultrasound volar right wrist was performed. On the provided images, no discrete cystic or solid mass lesion is demonstrated. Probable tortuous vascular structure of the soft tissues of the right wrist image 15. US/Ext Non Vasc Limited/Soft Tiss IMPRESSION: No focal sonographic abnormality of the right wrist is demonstrated. If there is persistent palpable abnormality, MRI evaluation may be considered. Reading [facility]
== END | disposition home or self-care (01) ==
LOC: US 15:08
PROVIDERS: PCP Family Medicine; Referring Provider Orthopaedic Surgery Sports Medicine; Visit Provider Orthopaedic Surgery Sports Medicine
DX: M67.431 Ganglion, right wrist (principal)
CPT/HCPCS: 76882

== ENCOUNTER → 2024-09-21 | Outpatient (CLI) | payer OTHER, SELFPAY ==
--- NOTE | 2024-09-21 16:15 | MRI_ITS ---
PROCEDURE: SPINE CERVICAL (ROUTINE) 09/21/2024 REASON FOR EXAM: HEADACHES TECHNIQUE: Multiplanar multisequential imaging was performed without IV contrast administration. Axial and sagittal T1 and T2 weighted images were obtained. Fat suppressed images were also obtained. COMPARISON: None. FINDINGS: Mild multilevel disc dehydration. Mild multilevel disc space narrowing. There is normal signal intensity from the visualized bone marrow without evidence of replacement or acute fracture. The visualized portions of the spinal cord are unremarkable. The visualized portions of the posterior fossa are unremarkable. There is straightening of the cervical lordosis, probably muscular spasm and pain. Evaluation of the individual levels revealed the following: C2-C3: There is no evidence of disk herniation. The spinal canal is not narrowed. There is no evidence of neural foramina narrowing. C3-C4: There is grade 1 retrolisthesis measuring 2.8 mm. Mild diffuse disc bulge. The spinal canal is not narrowed. There is mild bilateral neural foramina narrowing. C4-C5: There is grade 1 retrolisthesis measuring 2.5 mm. Mild diffuse disc bulge. The spinal canal is not narrowed. There is mild bilateral neural foramina narrowing. C5-C6: There is mild diffuse disc bulge. The spinal canal is not narrowed. There is mild right and moderate left neural foramina narrowing. C6-C7: There is mild diffuse disc bulge. The spinal canal is not narrowed. There is mild bilateral neural foramina narrowing. MRI/Spine Cervical (Routine) IMPRESSION: Spondylosis. Degenerative disc disease. Reading Location[facility] [address]
== END | disposition home or self-care (01) ==
LOC: MRI 15:48
PROVIDERS: PCP Family Medicine; Referring Provider Family Medicine; Visit Provider Family Medicine
DX: R51.9 Headache, unspecified (principal); M54.12 Radiculopathy, cervical region
CPT/HCPCS: 72141

== ENCOUNTER → 2024-09-25 | Outpatient (CLI) | payer OTHER, SELFPAY ==
--- NOTE | 2024-09-25 16:15 | MRI_ITS ---
PROCEDURE: BRAIN W/WO CONTRAST 09/25/2024 REASON FOR EXAM: CEREBRAL CYSTS TECHNIQUE: Brain MRI without and with intravenous contrast with additional dedicated imaging of the IACs. Multiplanar and multisequence images were obtained. CONTRAST: 20 mL of Clariscan was administered. COMPARISON: 11/19/2022 FINDINGS: No diffusion restriction to suggest acute/subacute ischemia. No evidence of acute intracranial hemorrhage or midline shift. No hydrocephalus. Cerebral volume is age-appropriate. Stable arachnoid cyst along the left frontal convexity measuring approximately 2.5 x 2.5 x 6.7 cm. No parenchymal signal abnormalities. No evidence of microhemorrhage. No pathologic enhancement. Globes are intact. Small left maxillary mucous retention cyst. MRI/Brain W/WO Contrast IMPRESSION: 1. No acute intracranial abnormality or pathologic enhancement. 2. Stable arachnoid cyst along the left frontal convexity. Reading Location: [facility]
== END | disposition home or self-care (01) ==
LOC: MRI 16:11
PROVIDERS: PCP Family Medicine; Referring Provider Family Medicine; Visit Provider Family Medicine
DX: G93.0 Cerebral cysts (principal); R42 Dizziness and giddiness
CPT/HCPCS: 70553; A9575